=== PATIENT | male | born 1955 | race Caucasian/White ===

== ENCOUNTER 2017-11-24 12:23 | Inpatient (IN) | payer MEDICARE, SELFPAY ==
[~2017-11-24] VITALS: Ht 172.7 cm; Wt 59.9 kg
[~2017-11-24 12:23] MED LIST: BENZ2TAB10 PO; FLUD25I IM; FLUP10 PO; FLUP25VI5 IM; FLUP5 PO; LISI-662 PO; OMEP20 PO
[2017-11-24] MEDS ORDERED: ACETAMINOPHEN 325 MG TABLET PO PRN (12:30)
[2017-11-24] MEDS ORDERED: FluPHENAZine HCL 5 MG TABLET PO PRN (12:30)
[2017-11-24] MEDS ORDERED: HydrOXYzine PAMOATE 50 MG CAPSULE PO PRN (12:30)
[2017-11-24] MEDS ORDERED: ZOLPIDEM TARTRATE 10 MG TABLET PO PRN (12:30)
[2017-11-24] MEDS ORDERED: TUBERCULIN, PURIFIED PROTEIN DERIVATIVE 5 TU/0.1 ML SYG ID ONE (12:30)
[2017-11-24] MEDS ORDERED: MAGNESIUM HYDROXIDE SUSPENSION 30 ML UDCUP PO PRN (12:30)
[2017-11-24] MEDS ORDERED: LOPERAMIDE HCL 2 MG CAPSULE PO PRN (12:30)
[2017-11-24] MEDS ORDERED: GuaiFENesin/D-METHORPHAN [SUGAR-FREE] 200-20MG/10 ML SYRUP UDCUP PO PRN (12:30)
[2017-11-24 12:44] VITALS: BP 127/79
[2017-11-24] MEDS ORDERED: FLUP5 PO (13:46)
[2017-11-24] MEDS ORDERED: LISI-662 PO (13:46)
[2017-11-24] MEDS ORDERED: OMEP20 PO (13:46)
[2017-11-24] MEDS ORDERED: TRIH5TAB2 PO (13:46)
[2017-11-24] MEDS: TRIHEXYPHENIDYL HCL 5 MG TABLET PO SCH ×2 (13:57→17:00)
[2017-11-24] MEDS ORDERED: PNEUMOCOCCAL VACCINE POLYVALENT 0.5 ML VIAL [PPSV23] IM ONE (14:00)
[2017-11-24] MEDS ORDERED: INFLUENZA VIRUS VACCINE QVS 2017-18 (3YR+)/PF 60 MCG/0.5 ML SYRINGE IM ONE (14:00)
[2017-11-24] MEDS: THIAMINE HCL 100 MG TABLET PO SCH (17:01)
[2017-11-24 17:32] VITALS: BP 137/60
[2017-11-24] MEDS: FluPHENAZine HCL 5 MG TABLET PO SCH (20:05)
[2017-11-24] MEDS: MAG HYDROX/AL HYDROX/SIMETH ES 30 ML SUSPENSION UDCUP PO PRN (20:15)
[2017-11-25] MEDS: LORazepam 2 MG TABLET PO PRN ×2 (00:41→16:23)
[2017-11-25] MEDS: MAG HYDROX/AL HYDROX/SIMETH ES 30 ML SUSPENSION UDCUP PO PRN ×3 (00:42→20:09)
[2017-11-25 00:43] VITALS: BP 143/83
[2017-11-25 07:37] LABS: BASOPHILS % (AUTO) 0.2 % (0.0-2.0); EOSINOPHILS % (AUTO) 0.9 % (1.0-6.0); HEMATOCRIT 44.1 % (41-53); HEMOGLOBIN 14.7 g/dL (13.5-17.5); LYMPHOCYTES # (AUTO) 1.5 K/uL (1.0-4.8); LYMPHOCYTES % (AUTO) 13.9 % (22.0-44.0); MEAN CORPUSCULAR HEMOGLOBIN 29.9 pg (26.0-34.0); MEAN CORPUSCULAR HGB CONC 33.4 G/dL (31.0-37.0); MEAN CORPUSCULAR VOLUME 89 fL (80-100); MONOCYTES # (AUTO) 0.5 K/uL (0.1-1.0); MONOCYTES % (AUTO) 4.6 % (2.0-9.0); NEUTROPHILS # (AUTO) 8.6 K/uL (1.8-7.7); NEUTROPHILS % (AUTO) 80.4 % (40.0-70.0); PLATELET COUNT (AUTO) 218 K/uL (150-450); RED BLOOD CELL COUNT(AUTO) 4.92 MIL/uL (4.50-5.90); RED CELL DISTRIBUTION WIDTH 15.8 % (11.5-14.5)
[2017-11-25 07:43] LABS: HEMOGLOBIN A1C 5.9 % (4.5-6.2)
[2017-11-25 08:01] LABS: ALANINE AMINOTRANSFERASE 26 U/L (12-78); ALBUMIN 3.4 g/dL (3.4-5.0); ALKALINE PHOSPHATASE 64 U/L (46-116); ANION GAP 7 mmol/L (8-16); ASPARTATE AMINOTRANSFERASE 15 U/L (15-37); BILIRUBIN,TOTAL 0.3 mg/dL (0.1-1.0); CALCIUM, TOTAL 8.4 mg/dL (8.8-10.5); CARBON DIOXIDE 25 mmol/L (22-29); CHLORIDE 105 mmol/L (98-107); CHOL/HDL RATIO 2.7 (4.2-7.3); CHOLESTEROL 173 mg/dL (131-200); CREATININE 1.06 mg/dL (0.60-1.30); GLOMERULAR FILTR. RATE CALC > 60 mL/min (>60); GLUCOSE,RANDOM 96 mg/dL (70-110); HDL CHOLESTEROL 65 mg/dL (40-60); POTASSIUM 4.7 mmol/L (3.5-5.1); SODIUM SERUM 137 mmol/L (136-145); TOTAL PROTEIN, SERUM 6.5 g/dL (6.4-8.2); TRIGLYCERIDES 96 mg/dL (15-150); UREA NITROGEN, BLOOD 15 mg/dL (7-18)
[2017-11-25 08:02] LABS: FREE T4 (FREE THYROXINE) 0.99 ng/dL (0.76-1.46); LDL CHOL (CALC.) 89 mg/dL (0-130); THYROID STIMULATING HORMONE 1.66 uIU/mL (0.36-3.74)
[2017-11-25] MEDS: TRIHEXYPHENIDYL HCL 5 MG TABLET PO SCH ×3 (08:28→16:22)
[2017-11-25] MEDS: FOLIC ACID 1 MG TABLET PO SCH (08:29)
[2017-11-25] MEDS: THIAMINE HCL 100 MG TABLET PO SCH ×2 (08:29→16:22)
[2017-11-25] MEDS: NALTREXONE HCL 50 MG TABLET PO SCH (08:29)
[2017-11-25] MEDS: MULTIVITAMINS WITH MINERALS, THERAPEUTIC TABLET PO SCH (08:29)
[2017-11-25 08:37] VITALS: BP 144/73
[2017-11-25] MEDS: PROMETHAZINE HCL 25 MG TABLET PO PRN ×2 (16:05→22:29)
[2017-11-25 16:16] VITALS: BP 152/93
[2017-11-25 18:04] VITALS: BP 160/106
[2017-11-25] MEDS ORDERED: AmLODIPine BESYLATE 10 MG TABLET PO ONE (18:30)
[2017-11-25 19:30] VITALS: BP 149/88
[2017-11-25] MEDS: FluPHENAZine HCL 5 MG TABLET PO SCH (20:34)
[2017-11-26 00:23] VITALS: BP 112/73
[2017-11-26] MEDS: MAG HYDROX/AL HYDROX/SIMETH ES 30 ML SUSPENSION UDCUP PO PRN (02:40)
[2017-11-26 08:30] VITALS: BP 157/95
[2017-11-26] MEDS: FOLIC ACID 1 MG TABLET PO SCH (08:34)
[2017-11-26] MEDS: NALTREXONE HCL 50 MG TABLET PO SCH (08:34)
[2017-11-26] MEDS: THIAMINE HCL 100 MG TABLET PO SCH (08:34)
[2017-11-26] MEDS: TRIHEXYPHENIDYL HCL 5 MG TABLET PO SCH ×2 (08:34→13:00)
[2017-11-26] MEDS: MULTIVITAMINS WITH MINERALS, THERAPEUTIC TABLET PO SCH (08:34)
[2017-11-26] MEDS ORDERED: AmLODIPine BESYLATE 5 MG TABLET PO SCH (09:00)
[2017-11-26] MEDS ORDERED: PANTOPRAZOLE SODIUM 40 MG DR TABLET PO SCH (09:00)
[2017-11-26] MEDS ORDERED: AmLODIPine BESYLATE 10 MG TABLET PO SCH (09:00)
[2017-11-26 09:35] VITALS: BP 150/95
[2017-11-26 12:06] VITALS: BP 171/115
[2017-11-26] MEDS ORDERED: NALT50TA6 PO (13:23)
[2017-11-26] MEDS ORDERED: PANT40TA25 PO (13:23)
[2017-11-26] MEDS ORDERED: AMLO-512 PO (13:23)
[2017-11-26] MEDS ORDERED: TRIH5TAB2 PO (13:23)
== END 2017-11-26 21:10 | disposition short-term general hospital (02) | DRG 885 ==
LOC: EDSTATUS 12:27 → B2X 12:58
PROVIDERS: ADMIT Psychiatry & Neurology Psychiatry; ATTEND Psychiatry & Neurology Psychiatry
PROC: 3E0234Z Introduction of Serum, Toxoid and Vaccine into Muscle, Percutaneous Approach (ICD-10-PCS; principal; 2017-11-25)
DX: F25.0 Schizoaffective disorder, bipolar type (principal); J98.4 Other disorders of lung; K21.9 Gastro-esophageal reflux disease without esophagitis; F17.200 Nicotine dependence, unspecified, uncomplicated; I10 Essential (primary) hypertension; J44.9 Chronic obstructive pulmonary disease, unspecified; Z91.19 Patient's noncompliance with other medical treatment and regimen; Z88.8 Allergy status to other drugs, medicaments and biological substances; Z23 Encounter for immunization; Z79.899 Other long term (current) drug therapy
CPT/HCPCS: 83036; 84439; 84443; 86592; 90471

== ENCOUNTER 2017-11-26 12:43 | Inpatient (IN) | payer MEDICARE, SELFPAY ==
[~2017-11-26] VITALS: Ht 172.7 cm; Wt 55.8 kg
[~2017-11-26 12:43] MED LIST changes: +TRIH5TAB2 PO
[2017-11-26] MEDS ORDERED: TRIH5TAB2 PO (13:23)
[2017-11-26] MEDS ORDERED: PANT40TA25 PO (13:23)
[2017-11-26] MEDS ORDERED: AMLO-512 PO (13:23)
[2017-11-26] MEDS ORDERED: NALT50TA6 PO (13:23)
[2017-11-26] MEDS ORDERED: OMEPRAZOLE 20 MG CAPSULE PO ONE (14:00)
[2017-11-26] MEDS ORDERED: DONNATAL/LIDOCAINE/MAALOX 55 ML BOTTLE PO ONE (14:00)
[2017-11-26 14:06] LABS: BASOPHILS % (AUTO) 0.2 % (0.0-2.0); EOSINOPHILS % (AUTO) 0 % (1.0-6.0); HEMATOCRIT 45.8 % (41-53); HEMOGLOBIN 15.3 g/dL (13.5-17.5); LYMPHOCYTES % (AUTO) 4.2 % (22.0-44.0); MEAN CORPUSCULAR HEMOGLOBIN 29.8 pg (26.0-34.0); MEAN CORPUSCULAR HGB CONC 33.5 G/dL (31.0-37.0); MEAN CORPUSCULAR VOLUME 89 fL (80-100); MONOCYTES % (AUTO) 4.4 % (2.0-9.0); NEUTROPHILS # (AUTO) 21.5 K/uL (1.8-7.7); PLATELET COUNT (AUTO) 240 K/uL (150-450); RED BLOOD CELL COUNT(AUTO) 5.15 MIL/uL (4.50-5.90); RED CELL DISTRIBUTION WIDTH 15.4 % (11.5-14.5)
[2017-11-26 14:11] LABS: NEUTROPHILS % (AUTO) 91.2 % (40.0-70.0)
[2017-11-26 14:15] LABS: ANION GAP 9 mmol/L (8-16); CALCIUM, TOTAL 8.8 mg/dL (8.8-10.5); CARBON DIOXIDE 25 mmol/L (22-29); CHLORIDE 97 mmol/L (98-107); CREATININE 0.97 mg/dL (0.60-1.30); GLOMERULAR FILTR. RATE CALC > 60 mL/min (>60); GLUCOSE,RANDOM 148 mg/dL (70-110); POTASSIUM 4.6 mmol/L (3.5-5.1); SODIUM SERUM 131 mmol/L (136-145); UREA NITROGEN, BLOOD 23 mg/dL (7-18)
[2017-11-26 14:22] LABS: ALANINE AMINOTRANSFERASE 21 U/L (12-78); ALBUMIN 3.5 g/dL (3.4-5.0); ALKALINE PHOSPHATASE 62 U/L (46-116); ASPARTATE AMINOTRANSFERASE 14 U/L (15-37); BILIRUBIN,TOTAL 0.4 mg/dL (0.1-1.0); LIPASE 196 U/L (73-393); TOTAL PROTEIN, SERUM 7.2 g/dL (6.4-8.2)
[2017-11-26] MEDS ORDERED: IOVERSOL 320 MG/ML 100 ML VIAL ONE (15:18)
[2017-11-26] MEDS ORDERED: ACETAMINOPHEN 325 MG TABLET PO PRN ×2 (17:00→20:00)
[2017-11-26] MEDS ORDERED: MetroNIDAZOLE 500 MG/NACL 100 ML IV ONE (17:00)
[2017-11-26] MEDS ORDERED: CIPROFLOXACIN 400 MG/D5% WATER 200 ML IV ONE (17:00)
[2017-11-26] MEDS ORDERED: ONDANSETRON HCL 4 MG/2 ML VIAL IVP PRN ×2 (17:00→20:00)
[2017-11-26] MEDS ORDERED: 0.9% SODIUM CHLORIDE 10 ML SYRINGE IVP PRN (17:00)
[2017-11-26] MEDS ORDERED: FAMOTIDINE 10 MG/ML 2 ML VIAL IVP ONE (17:15)
[2017-11-26 17:55] VITALS: BP 151/98
[2017-11-26 19:42] VITALS: BP 150/91
[2017-11-26] MEDS ORDERED: MAGNESIUM HYDROXIDE SUSPENSION 30 ML UDCUP PO PRN (20:00)
[2017-11-26] MEDS ORDERED: BISACODYL 10 MG RECTAL RECTAL SUPPOSITORY PR PRN (20:00)
[2017-11-26] MEDS ORDERED: ZOLPIDEM TARTRATE 5 MG TABLET PO PRN (20:00)
[2017-11-26] MEDS ORDERED: SODIUM CHLORIDE 0.9% 1,000 ML IV ONE (20:00)
[2017-11-26] MEDS: DOCUSATE SODIUM 100 MG CAPSULE PO SCH (20:22)
[2017-11-26] MEDS: PANTOPRAZOLE SODIUM 80 MG in SODIUM CHLORIDE 0.9% 100 ML IV SCH (20:41)
[2017-11-26] MEDS ORDERED: CIPROFLOXACIN 400 MG/D5% WATER 200 ML IV SCH (21:00)
[2017-11-26 23:23] VITALS: BP 149/87
[2017-11-26] MEDS: HEPARIN SODIUM,PORCINE 5,000 UNITS/ML VIAL SQ SCH (23:47)
[2017-11-27 04:31] VITALS: BP 132/81
[2017-11-27] MEDS: MetroNIDAZOLE 500 MG/NACL 100 ML IV SCH ×2 (04:51→11:31)
[2017-11-27] MEDS: PANTOPRAZOLE SODIUM 80 MG in SODIUM CHLORIDE 0.9% 100 ML IV SCH (05:30)
[2017-11-27 06:19] LABS: BASOPHILS % (AUTO) 0.1 % (0.0-2.0); EOSINOPHILS % (AUTO) 0.1 % (1.0-6.0); HEMATOCRIT 41.4 % (41-53); HEMOGLOBIN 14.1 g/dL (13.5-17.5); LYMPHOCYTES # (AUTO) 1.2 K/uL (1.0-4.8); MEAN CORPUSCULAR HEMOGLOBIN 30.3 pg (26.0-34.0); MEAN CORPUSCULAR HGB CONC 34.1 G/dL (31.0-37.0); MEAN CORPUSCULAR VOLUME 89 fL (80-100); MONOCYTES % (AUTO) 5.1 % (2.0-9.0); PLATELET COUNT (AUTO) 189 K/uL (150-450); RED BLOOD CELL COUNT(AUTO) 4.65 MIL/uL (4.50-5.90); RED CELL DISTRIBUTION WIDTH 15.2 % (11.5-14.5)
[2017-11-27 06:46] LABS: NEUTROPHILS % (AUTO) 88.7 % (40.0-70.0)
[2017-11-27 06:52] LABS: ANION GAP 10 mmol/L (8-16); CALCIUM, TOTAL 8.4 mg/dL (8.8-10.5); CARBON DIOXIDE 20 mmol/L (22-29); CHLORIDE 102 mmol/L (98-107); CREATININE 0.93 mg/dL (0.60-1.30); GLOMERULAR FILTR. RATE CALC > 60 mL/min (>60); GLUCOSE,RANDOM 104 mg/dL (70-110); POTASSIUM 4.3 mmol/L (3.5-5.1); SODIUM SERUM 132 mmol/L (136-145); THYROID STIMULATING HORMONE 1.04 uIU/mL (0.36-3.74); UREA NITROGEN, BLOOD 17 mg/dL (7-18)
[2017-11-27 07:04] VITALS: BP 121/75
[2017-11-27] MEDS: HEPARIN SODIUM,PORCINE 5,000 UNITS/ML VIAL SQ SCH (08:18)
[2017-11-27] MEDS: DOCUSATE SODIUM 100 MG CAPSULE PO SCH (08:19)
[2017-11-27] MEDS ORDERED: PANTOPRAZOLE SODIUM 40 MG DR TABLET PO SCH (09:00)
[2017-11-27 11:43] VITALS: BP 141/85
[2017-11-27] MEDS ORDERED: SODIUM CHLORIDE 0.9% 500 ML IV ONE (12:00)
[2017-11-27] MEDS ORDERED: AmLODIPine BESYLATE 10 MG TABLET PO SCH (14:30)
[2017-11-27] MEDS ORDERED: TRIHEXYPHENIDYL HCL 5 MG TABLET PO SCH (16:00)
[2017-11-27] MEDS ORDERED: FluPHENAZine HCL 5 MG TABLET PO SCH (21:00)
== END 2017-11-27 14:55 | disposition left against medical advice (07) | DRG 872 ==
LOC: EMS 12:46 → 5N 16:55
PROVIDERS: ADMIT Internal Medicine; ATTEND Internal Medicine
DX: A41.9 Sepsis, unspecified organism (principal); F20.9 Schizophrenia, unspecified; F32.9 Major depressive disorder, single episode, unspecified; I10 Essential (primary) hypertension; K29.70 Gastritis, unspecified, without bleeding; K21.9 Gastro-esophageal reflux disease without esophagitis; Z82.49 Family history of ischemic heart disease and other diseases of the circulatory system; Z79.899 Other long term (current) drug therapy; Z81.8 Family history of other mental and behavioral disorders; Z80.9 Family history of malignant neoplasm, unspecified; Z87.891 Personal history of nicotine dependence
CPT/HCPCS: 74177; 84443; 93005; 96365; 96375; 99285; C9113; J0744; J1644; J3490; J7030; J7040; J7050

== ENCOUNTER 2018-03-26 11:06 | Inpatient (IN) | payer MEDICARE ==
[~2018-03-26] VITALS: Ht 172.7 cm; Wt 58.5 kg
[~2018-03-26 11:06] MED LIST changes: +AMLO-512 PO; -BENZ2TAB10 PO; -FLUD25I IM; -FLUP10 PO; -FLUP25VI5 IM; +NALT50TA6 PO; -OMEP20 PO; +PANT40TA25 PO
[2018-03-26] MEDS ORDERED: FluPHENAZine HCL 5 MG TABLET PO PRN (13:45)
[2018-03-26] MEDS ORDERED: LOPERAMIDE HCL 2 MG CAPSULE PO PRN (13:45)
[2018-03-26] MEDS ORDERED: ACETAMINOPHEN 325 MG TABLET PO PRN (13:45)
[2018-03-26] MEDS ORDERED: FluPHENAZine DECANOATE 25 MG/ML IM ONE (13:45)
[2018-03-26] MEDS ORDERED: ZOLPIDEM TARTRATE 10 MG TABLET PO PRN (13:45)
[2018-03-26] MEDS ORDERED: GuaiFENesin/D-METHORPHAN [SUGAR-FREE] 200-20MG/10 ML SYRUP UDCUP PO PRN (13:45)
[2018-03-26] MEDS ORDERED: PROMETHAZINE HCL 25 MG TABLET PO PRN (13:45)
[2018-03-26] MEDS ORDERED: MAGNESIUM HYDROXIDE SUSPENSION 30 ML UDCUP PO PRN (13:45)
[2018-03-26] MEDS ORDERED: LORazepam 2 MG TABLET PO PRN (13:45)
[2018-03-26] MEDS ORDERED: HydrOXYzine PAMOATE 50 MG CAPSULE PO PRN (13:45)
[2018-03-26 14:02] VITALS: BP 129/94
[2018-03-26] MEDS ORDERED: PNEUMOCOCCAL VACCINE POLYVALENT 0.5 ML VIAL [PPSV23] IM ONE (15:00)
[2018-03-26 15:30] VITALS: BP 150/90
[2018-03-26 16:00] VITALS: BP 150/90
[2018-03-26] MEDS: MAG HYDROX/AL HYDROX/SIMETH ES 30 ML SUSPENSION UDCUP PO PRN ×2 (16:12→22:34)
[2018-03-26] MEDS: THIAMINE HCL 100 MG TABLET PO SCH (18:05)
[2018-03-26] MEDS: TRIHEXYPHENIDYL HCL 5 MG TABLET PO SCH (18:05)
[2018-03-26] MEDS: LISINOPRIL 20 MG TABLET PO SCH (18:05)
[2018-03-26 19:00] VITALS: BP 137/88
[2018-03-26] MEDS: FluPHENAZine HCL 5 MG TABLET PO SCH (20:56)
[2018-03-27 06:50] VITALS: BP 133/82
[2018-03-27 08:10] LABS: BASOPHILS % (AUTO) 0.3 % (0.0-2.0); EOSINOPHILS % (AUTO) 1.7 % (1.0-6.0); HEMATOCRIT 43.7 % (41-53); LYMPHOCYTES # (AUTO) 2.4 K/uL (1.0-4.8); LYMPHOCYTES % (AUTO) 24.4 % (22.0-44.0); MEAN CORPUSCULAR HEMOGLOBIN 30.7 pg (26.0-34.0); MEAN CORPUSCULAR HGB CONC 34.4 G/dL (31.0-37.0); MEAN CORPUSCULAR VOLUME 89 fL (80-100); MONOCYTES # (AUTO) 0.8 K/uL (0.1-1.0); MONOCYTES % (AUTO) 7.6 % (2.0-9.0); NEUTROPHILS # (AUTO) 6.5 K/uL (1.8-7.7); PLATELET COUNT (AUTO) 205 K/uL (150-450); RED CELL DISTRIBUTION WIDTH 15.9 % (11.5-14.5)
[2018-03-27 08:22] LABS: HEMOGLOBIN A1C 5.5 % (4.5-6.2)
[2018-03-27 08:40] VITALS: BP 138/76
[2018-03-27 08:50] LABS: ALANINE AMINOTRANSFERASE 20 U/L (12-78); ALBUMIN 3.7 g/dL (3.4-5.0); ALKALINE PHOSPHATASE 72 U/L (46-116); ANION GAP 11 mmol/L (8-16); ASPARTATE AMINOTRANSFERASE 17 U/L (15-37); BILIRUBIN,TOTAL 0.3 mg/dL (0.1-1.0); CALCIUM, TOTAL 8.9 mg/dL (8.8-10.5); CARBON DIOXIDE 23 mmol/L (22-29); CHLORIDE 101 mmol/L (98-107); CHOL/HDL RATIO 2.3 (4.2-7.3); CHOLESTEROL 161 mg/dL (131-200); CREATININE 0.96 mg/dL (0.60-1.30); FREE T4 (FREE THYROXINE) 1.11 ng/dL (0.76-1.46); GLOMERULAR FILTR. RATE CALC > 60 mL/min (>60); GLUCOSE,RANDOM 84 mg/dL (70-110); HDL CHOLESTEROL 71 mg/dL (40-60); LDL CHOL (CALC.) 78 mg/dL (0-130); POTASSIUM 4.3 mmol/L (3.5-5.1); SODIUM SERUM 135 mmol/L (136-145); THYROID STIMULATING HORMONE 2.69 uIU/mL (0.36-3.74); TOTAL PROTEIN, SERUM 7.2 g/dL (6.4-8.2); TRIGLYCERIDES 61 mg/dL (15-150); UREA NITROGEN, BLOOD 21 mg/dL (7-18)
[2018-03-27] MEDS: THIAMINE HCL 100 MG TABLET PO SCH ×2 (08:52→16:38)
[2018-03-27] MEDS: LISINOPRIL 20 MG TABLET PO SCH (08:52)
[2018-03-27] MEDS: MULTIVITAMINS WITH MINERALS, THERAPEUTIC TABLET PO SCH (08:52)
[2018-03-27] MEDS: NALTREXONE HCL 50 MG TABLET PO SCH (08:52)
[2018-03-27] MEDS: TRIHEXYPHENIDYL HCL 5 MG TABLET PO SCH ×3 (08:52→16:38)
[2018-03-27] MEDS: PANTOPRAZOLE SODIUM 40 MG DR TABLET PO SCH (08:52)
[2018-03-27] MEDS: FOLIC ACID 1 MG TABLET PO SCH (08:52)
[2018-03-27] MEDS: MAG HYDROX/AL HYDROX/SIMETH ES 30 ML SUSPENSION UDCUP PO PRN ×2 (10:44→16:58)
[2018-03-27] MEDS: CHOLECALCIFEROL (VIT D3) 5,000 UNITS CAPSULE PO SCH (12:13)
[2018-03-27 16:13] VITALS: BP 139/86
[2018-03-27] MEDS: FluPHENAZine HCL 5 MG TABLET PO SCH (20:47)
[2018-03-28 07:00] VITALS: BP 134/83
[2018-03-28 08:45] VITALS: BP 109/71
[2018-03-28 08:55] VITALS: BP 118/74
[2018-03-28] MEDS: PANTOPRAZOLE SODIUM 40 MG DR TABLET PO SCH (08:58)
[2018-03-28] MEDS: LISINOPRIL 20 MG TABLET PO SCH (08:58)
[2018-03-28] MEDS: THIAMINE HCL 100 MG TABLET PO SCH ×2 (08:58→16:40)
[2018-03-28] MEDS: MULTIVITAMINS WITH MINERALS, THERAPEUTIC TABLET PO SCH (08:58)
[2018-03-28] MEDS: NALTREXONE HCL 50 MG TABLET PO SCH (08:59)
[2018-03-28] MEDS: FOLIC ACID 1 MG TABLET PO SCH (08:59)
[2018-03-28] MEDS: CHOLECALCIFEROL (VIT D3) 5,000 UNITS CAPSULE PO SCH (08:59)
[2018-03-28] MEDS: TRIHEXYPHENIDYL HCL 5 MG TABLET PO SCH ×3 (08:59→16:39)
[2018-03-28] MEDS: MAG HYDROX/AL HYDROX/SIMETH ES 30 ML SUSPENSION UDCUP PO PRN ×2 (12:31→22:28)
[2018-03-28 16:12] VITALS: BP 110/62
[2018-03-28] MEDS: FluPHENAZine HCL 5 MG TABLET PO SCH (20:39)
[2018-03-29 01:54] VITALS: BP 104/65
[2018-03-29 08:47] VITALS: BP 105/60
[2018-03-29] MEDS: TRIHEXYPHENIDYL HCL 5 MG TABLET PO SCH ×3 (08:57→16:37)
[2018-03-29] MEDS: CHOLECALCIFEROL (VIT D3) 5,000 UNITS CAPSULE PO SCH (08:57)
[2018-03-29] MEDS: FOLIC ACID 1 MG TABLET PO SCH (08:57)
[2018-03-29] MEDS: NALTREXONE HCL 50 MG TABLET PO SCH (08:57)
[2018-03-29] MEDS: PANTOPRAZOLE SODIUM 40 MG DR TABLET PO SCH (08:57)
[2018-03-29] MEDS: THIAMINE HCL 100 MG TABLET PO SCH ×2 (08:57→16:37)
[2018-03-29] MEDS: MULTIVITAMINS WITH MINERALS, THERAPEUTIC TABLET PO SCH (08:58)
[2018-03-29] MEDS: LISINOPRIL 20 MG TABLET PO SCH (09:00)
[2018-03-29 17:49] VITALS: BP 113/73
[2018-03-29] MEDS: FluPHENAZine HCL 5 MG TABLET PO SCH (20:46)
[2018-03-30 07:04] VITALS: BP 121/78
[2018-03-30 08:35] VITALS: BP 112/65
[2018-03-30] MEDS: LISINOPRIL 20 MG TABLET PO SCH (08:39)
[2018-03-30] MEDS: FOLIC ACID 1 MG TABLET PO SCH (08:39)
[2018-03-30] MEDS: MULTIVITAMINS WITH MINERALS, THERAPEUTIC TABLET PO SCH (08:39)
[2018-03-30] MEDS: PANTOPRAZOLE SODIUM 40 MG DR TABLET PO SCH (08:39)
[2018-03-30] MEDS: THIAMINE HCL 100 MG TABLET PO SCH ×2 (08:40→16:27)
[2018-03-30] MEDS: CHOLECALCIFEROL (VIT D3) 5,000 UNITS CAPSULE PO SCH (08:40)
[2018-03-30] MEDS: TRIHEXYPHENIDYL HCL 5 MG TABLET PO SCH ×3 (08:40→16:27)
[2018-03-30] MEDS: NALTREXONE HCL 50 MG TABLET PO SCH (08:40)
[2018-03-30 16:32] VITALS: BP 110/69
[2018-03-30] MEDS: FluPHENAZine HCL 5 MG TABLET PO SCH (20:21)
[2018-03-31 07:27] VITALS: BP 104/61
[2018-03-31] MEDS: NALTREXONE HCL 50 MG TABLET PO SCH (08:38)
[2018-03-31] MEDS: TRIHEXYPHENIDYL HCL 5 MG TABLET PO SCH ×3 (08:38→16:56)
[2018-03-31] MEDS: FOLIC ACID 1 MG TABLET PO SCH (08:38)
[2018-03-31] MEDS: PANTOPRAZOLE SODIUM 40 MG DR TABLET PO SCH (08:38)
[2018-03-31] MEDS: THIAMINE HCL 100 MG TABLET PO SCH ×2 (08:38→16:56)
[2018-03-31] MEDS: CHOLECALCIFEROL (VIT D3) 5,000 UNITS CAPSULE PO SCH (08:38)
[2018-03-31] MEDS: MULTIVITAMINS WITH MINERALS, THERAPEUTIC TABLET PO SCH (08:38)
[2018-03-31] MEDS: LISINOPRIL 20 MG TABLET PO SCH (08:40)
[2018-03-31 08:45] VITALS: BP 100/62
[2018-03-31 16:42] VITALS: BP 103/60
[2018-03-31] MEDS: FluPHENAZine HCL 5 MG TABLET PO SCH (20:29)
[2018-04-01 00:48] VITALS: BP 100/61
[2018-04-01 08:35] VITALS: BP 104/60
[2018-04-01] MEDS: MULTIVITAMINS WITH MINERALS, THERAPEUTIC TABLET PO SCH (08:46)
[2018-04-01] MEDS: THIAMINE HCL 100 MG TABLET PO SCH ×2 (08:46→16:43)
[2018-04-01] MEDS: PANTOPRAZOLE SODIUM 40 MG DR TABLET PO SCH (08:46)
[2018-04-01] MEDS: TRIHEXYPHENIDYL HCL 5 MG TABLET PO SCH ×3 (08:46→16:43)
[2018-04-01] MEDS: NALTREXONE HCL 50 MG TABLET PO SCH (08:46)
[2018-04-01] MEDS: FOLIC ACID 1 MG TABLET PO SCH (08:46)
[2018-04-01] MEDS: CHOLECALCIFEROL (VIT D3) 5,000 UNITS CAPSULE PO SCH (08:46)
[2018-04-01] MEDS: LISINOPRIL 20 MG TABLET PO SCH (08:47)
[2018-04-01 16:29] VITALS: BP 110/67
[2018-04-01] MEDS: FluPHENAZine HCL 5 MG TABLET PO SCH (20:41)
[2018-04-02 06:50] VITALS: BP 122/68
[2018-04-02] MEDS: TRIHEXYPHENIDYL HCL 5 MG TABLET PO SCH ×3 (08:34→16:38)
[2018-04-02] MEDS: CHOLECALCIFEROL (VIT D3) 5,000 UNITS CAPSULE PO SCH (08:34)
[2018-04-02] MEDS: PANTOPRAZOLE SODIUM 40 MG DR TABLET PO SCH (08:34)
[2018-04-02] MEDS: NALTREXONE HCL 50 MG TABLET PO SCH (08:34)
[2018-04-02 08:35] VITALS: BP 106/57
[2018-04-02] MEDS: MULTIVITAMINS WITH MINERALS, THERAPEUTIC TABLET PO SCH (08:35)
[2018-04-02] MEDS: FOLIC ACID 1 MG TABLET PO SCH (08:35)
[2018-04-02] MEDS: THIAMINE HCL 100 MG TABLET PO SCH ×2 (08:35→16:38)
[2018-04-02] MEDS: LISINOPRIL 20 MG TABLET PO SCH (08:44)
[2018-04-02 16:21] VITALS: BP 127/66
[2018-04-02] MEDS: FluPHENAZine HCL 5 MG TABLET PO SCH (20:49)
[2018-04-03 06:33] VITALS: BP 101/64
[2018-04-03 08:00] VITALS: BP 103/61
[2018-04-03] MEDS: CHOLECALCIFEROL (VIT D3) 5,000 UNITS CAPSULE PO SCH (08:31)
[2018-04-03] MEDS: LISINOPRIL 20 MG TABLET PO SCH (08:31)
[2018-04-03] MEDS: MULTIVITAMINS WITH MINERALS, THERAPEUTIC TABLET PO SCH (08:31)
[2018-04-03] MEDS: THIAMINE HCL 100 MG TABLET PO SCH ×2 (08:31→16:28)
[2018-04-03] MEDS: PANTOPRAZOLE SODIUM 40 MG DR TABLET PO SCH (08:31)
[2018-04-03] MEDS: TRIHEXYPHENIDYL HCL 5 MG TABLET PO SCH ×3 (08:31→16:28)
[2018-04-03] MEDS: FOLIC ACID 1 MG TABLET PO SCH (08:31)
[2018-04-03] MEDS: NALTREXONE HCL 50 MG TABLET PO SCH (08:31)
[2018-04-03 16:17] VITALS: BP 138/72
[2018-04-03] MEDS ORDERED: FluPHENAZine HCL 10 MG TABLET PO SCH (21:00)
[2018-04-04 06:32] VITALS: BP 121/66
[2018-04-04 08:15] VITALS: BP 105/60
[2018-04-04] MEDS: CHOLECALCIFEROL (VIT D3) 5,000 UNITS CAPSULE PO SCH (08:52)
[2018-04-04] MEDS: PANTOPRAZOLE SODIUM 40 MG DR TABLET PO SCH (08:53)
[2018-04-04] MEDS: FOLIC ACID 1 MG TABLET PO SCH (08:53)
[2018-04-04] MEDS: NALTREXONE HCL 50 MG TABLET PO SCH (08:53)
[2018-04-04] MEDS: MULTIVITAMINS WITH MINERALS, THERAPEUTIC TABLET PO SCH (08:53)
[2018-04-04] MEDS: TRIHEXYPHENIDYL HCL 5 MG TABLET PO SCH ×3 (08:53→16:50)
[2018-04-04] MEDS: THIAMINE HCL 100 MG TABLET PO SCH ×2 (08:53→16:50)
[2018-04-04] MEDS ORDERED: FluPHENAZine DECANOATE 25 MG/ML IM ONE (13:30)
[2018-04-04] MEDS ORDERED: FLUD25I IM (13:52)
[2018-04-04] MEDS ORDERED: TRIH5TAB2 PO (13:52)
[2018-04-04] MEDS ORDERED: NALT50TA PO (13:52)
[2018-04-04 16:25] VITALS: BP 122/64
[2018-04-05 07:13] VITALS: BP 106/66
[2018-04-05 08:00] VITALS: BP 115/65
[2018-04-05] MEDS: PANTOPRAZOLE SODIUM 40 MG DR TABLET PO SCH (09:01)
[2018-04-05] MEDS: THIAMINE HCL 100 MG TABLET PO SCH (09:01)
[2018-04-05] MEDS: FOLIC ACID 1 MG TABLET PO SCH (09:01)
[2018-04-05] MEDS: TRIHEXYPHENIDYL HCL 5 MG TABLET PO SCH ×2 (09:01→12:19)
[2018-04-05] MEDS: NALTREXONE HCL 50 MG TABLET PO SCH (09:01)
[2018-04-05] MEDS: MULTIVITAMINS WITH MINERALS, THERAPEUTIC TABLET PO SCH (09:01)
[2018-04-05] MEDS: CHOLECALCIFEROL (VIT D3) 5,000 UNITS CAPSULE PO SCH (09:01)
[2018-04-05] MEDS ORDERED: CHOL50004 PO (09:33)
[2018-04-05] MEDS ORDERED: FLUD25I SQ (09:33)
[2018-04-05] MEDS ORDERED: NALT50TA6 PO (10:52)
[2018-04-05] MEDS ORDERED: FLUD25I IM (10:52)
[2018-04-05] MEDS ORDERED: TRIH5TAB2 PO (10:52)
[2018-04-09] MEDS ORDERED: FluPHENAZine DECANOATE 25 MG/ML IM SCH (09:00)
[2018-04-18] MEDS ORDERED: FluPHENAZine DECANOATE 25 MG/ML IM SCH (09:00)
== END 2018-04-05 21:52 | disposition home or self-care (01) | DRG 885 ==
LOC: B2X 14:30
PROVIDERS: ADMIT Psychiatry & Neurology Psychiatry; ATTEND Psychiatry & Neurology Psychiatry
DX: F20.0 Paranoid schizophrenia (principal); R45.850 Homicidal ideations; R45.851 Suicidal ideations; F17.210 Nicotine dependence, cigarettes, uncomplicated; F32.9 Major depressive disorder, single episode, unspecified; K21.9 Gastro-esophageal reflux disease without esophagitis; I10 Essential (primary) hypertension; Z59.9 Problem related to housing and economic circumstances, unspecified; Z65.3 Problems related to other legal circumstances; Z79.899 Other long term (current) drug therapy; Z91.14 Patient's other noncompliance with medication regimen; Z91.19 Patient's noncompliance with other medical treatment and regimen; Z28.21 Immunization not carried out because of patient refusal
CPT/HCPCS: 82306; 83036; 84439; 84443; 86592; 93005; J2680

== ENCOUNTER 2018-08-08 17:28 | Inpatient (IN) | payer MEDICARE, MEDICAID ==
[~2018-08-08] VITALS: Ht 172.7 cm; Wt 62.8 kg
[~2018-08-08 17:28] MED LIST changes: -AMLO-512 PO; +CHOL50004 PO; +FLUD25I IM; -FLUP5 PO; -LISI-662 PO; +NALT50TA PO
[2018-08-08] MEDS ORDERED: ZOLPIDEM TARTRATE 10 MG TABLET PO PRN (18:15)
[2018-08-08] MEDS ORDERED: FluPHENAZine HCL 5 MG TABLET PO PRN (18:15)
[2018-08-08] MEDS ORDERED: LORazepam 2 MG TABLET PO PRN (18:15)
[2018-08-08 18:52] VITALS: BP 142/92
[2018-08-08] MEDS ORDERED: PNEUMOCOCCAL VACCINE POLYVALENT 0.5 ML VIAL [PPSV23] IM ONE (19:00)
[2018-08-08 20:20] VITALS: BP 130/84
[2018-08-08] MEDS: FluPHENAZine HCL 10 MG TABLET PO SCH (21:25)
[2018-08-08] MEDS: TRIHEXYPHENIDYL HCL 5 MG TABLET PO SCH (21:26)
[2018-08-09 06:29] LABS: BASOPHILS % (AUTO) 0.1 % (0.0-2.0); EOSINOPHILS % (AUTO) 2.4 % (1.0-6.0); HEMATOCRIT 38.5 % (41-53); HEMOGLOBIN 12.8 g/dL (13.5-17.5); LYMPHOCYTES # (AUTO) 1.8 K/uL (1.0-4.8); LYMPHOCYTES % (AUTO) 22.7 % (22.0-44.0); MEAN CORPUSCULAR HEMOGLOBIN 29.1 pg (26.0-34.0); MEAN CORPUSCULAR HGB CONC 33.3 G/dL (31.0-37.0); MEAN CORPUSCULAR VOLUME 87 fL (80-100); MONOCYTES # (AUTO) 0.7 K/uL (0.1-1.0); MONOCYTES % (AUTO) 8.4 % (2.0-9.0); NEUTROPHILS # (AUTO) 5.3 K/uL (1.8-7.7); NEUTROPHILS % (AUTO) 66.4 % (40.0-70.0); PLATELET COUNT (AUTO) 197 K/uL (150-450); RED CELL DISTRIBUTION WIDTH 14.9 % (11.5-14.5)
[2018-08-09 07:11] LABS: ALBUMIN 2.6 g/dL (3.4-5.0); BILIRUBIN,TOTAL 0.4 mg/dL (0.1-1.0); CHOL/HDL RATIO 2.6 (4.2-7.3); CREATININE 1.21 mg/dL (0.60-1.30); FREE T4 (FREE THYROXINE) 1.11 ng/dL (0.76-1.46); POTASSIUM 4.4 mmol/L (3.5-5.1); THYROID STIMULATING HORMONE 1.76 uIU/mL (0.36-3.74); TOTAL PROTEIN, SERUM 5.2 g/dL (6.4-8.2)
[2018-08-09] MEDS: PANTOPRAZOLE SODIUM 40 MG DR TABLET PO SCH (09:13)
[2018-08-09] MEDS: CHOLECALCIFEROL (VIT D3) 5,000 UNITS CAPSULE PO SCH (09:13)
[2018-08-09] MEDS: TRIHEXYPHENIDYL HCL 5 MG TABLET PO SCH ×3 (09:13→18:39)
[2018-08-09] MEDS: NALTREXONE HCL 50 MG TABLET PO SCH (09:13)
[2018-08-09] MEDS ORDERED: LOPERAMIDE HCL 2 MG CAPSULE PO PRN (10:45)
[2018-08-09] MEDS ORDERED: ACETAMINOPHEN 325 MG TABLET PO PRN (10:45)
[2018-08-09] MEDS ORDERED: PROMETHAZINE HCL 25 MG TABLET PO PRN (10:45)
[2018-08-09] MEDS ORDERED: HydrOXYzine PAMOATE 50 MG CAPSULE PO PRN (10:45)
[2018-08-09] MEDS ORDERED: MAG HYDROX/AL HYDROX/SIMETH ES 30 ML SUSPENSION UDCUP PO PRN (10:45)
[2018-08-09] MEDS ORDERED: MAGNESIUM HYDROXIDE SUSPENSION 30 ML UDCUP PO PRN (10:45)
[2018-08-09] MEDS ORDERED: FluPHENAZine DECANOATE 25 MG/ML IM ONE (10:45)
[2018-08-09] MEDS ORDERED: GuaiFENesin/D-METHORPHAN [SUGAR-FREE] 200-20MG/10 ML SYRUP UDCUP PO PRN (10:45)
[2018-08-09 13:59] VITALS: BP 134/82
[2018-08-09] MEDS: THIAMINE HCL 100 MG TABLET PO SCH (16:01)
[2018-08-09 16:48] VITALS: BP 138/80
[2018-08-09] MEDS: FluPHENAZine HCL 10 MG TABLET PO SCH (22:50)
[2018-08-10] MEDS: MULTIVITAMINS WITH MINERALS, THERAPEUTIC TABLET PO SCH (07:47)
[2018-08-10] MEDS: THIAMINE HCL 100 MG TABLET PO SCH ×2 (07:50→17:11)
[2018-08-10] MEDS: TRIHEXYPHENIDYL HCL 5 MG TABLET PO SCH ×3 (07:50→17:11)
[2018-08-10] MEDS: CHOLECALCIFEROL (VIT D3) 5,000 UNITS CAPSULE PO SCH (07:50)
[2018-08-10] MEDS: NALTREXONE HCL 50 MG TABLET PO SCH (07:50)
[2018-08-10] MEDS: FOLIC ACID 1 MG TABLET PO SCH (07:50)
[2018-08-10] MEDS: PANTOPRAZOLE SODIUM 40 MG DR TABLET PO SCH (07:51)
[2018-08-10 08:05] VITALS: BP 142/82
[2018-08-10] MEDS: NICOTINE 21 MG/24 HOUR PATCH TD SCH (11:56)
[2018-08-10 16:36] VITALS: BP 140/70
[2018-08-10] MEDS: FluPHENAZine HCL 10 MG TABLET PO SCH (20:02)
[2018-08-11] MEDS: PANTOPRAZOLE SODIUM 40 MG DR TABLET PO SCH (07:57)
[2018-08-11] MEDS: MULTIVITAMINS WITH MINERALS, THERAPEUTIC TABLET PO SCH (07:57)
[2018-08-11] MEDS: NICOTINE 21 MG/24 HOUR PATCH TD SCH (07:58)
[2018-08-11] MEDS: NALTREXONE HCL 50 MG TABLET PO SCH (07:58)
[2018-08-11] MEDS: CHOLECALCIFEROL (VIT D3) 5,000 UNITS CAPSULE PO SCH (07:58)
[2018-08-11] MEDS: THIAMINE HCL 100 MG TABLET PO SCH ×2 (07:58→16:40)
[2018-08-11] MEDS: FOLIC ACID 1 MG TABLET PO SCH (07:58)
[2018-08-11] MEDS: TRIHEXYPHENIDYL HCL 5 MG TABLET PO SCH ×3 (07:58→16:40)
[2018-08-11 08:01] VITALS: BP 102/52
[2018-08-11 17:37] VITALS: BP 110/74
[2018-08-11] MEDS: FluPHENAZine HCL 10 MG TABLET PO SCH (20:23)
[2018-08-12] MEDS: FOLIC ACID 1 MG TABLET PO SCH (08:11)
[2018-08-12] MEDS: PANTOPRAZOLE SODIUM 40 MG DR TABLET PO SCH (08:11)
[2018-08-12] MEDS: NALTREXONE HCL 50 MG TABLET PO SCH (08:11)
[2018-08-12] MEDS: MULTIVITAMINS WITH MINERALS, THERAPEUTIC TABLET PO SCH (08:11)
[2018-08-12] MEDS: TRIHEXYPHENIDYL HCL 5 MG TABLET PO SCH ×3 (08:11→16:20)
[2018-08-12] MEDS: CHOLECALCIFEROL (VIT D3) 5,000 UNITS CAPSULE PO SCH (08:12)
[2018-08-12] MEDS: THIAMINE HCL 100 MG TABLET PO SCH ×2 (08:12→16:20)
[2018-08-12 08:15] VITALS: BP 101/63
[2018-08-12] MEDS: NICOTINE 21 MG/24 HOUR PATCH TD SCH (08:16)
[2018-08-12 17:00] VITALS: BP 98/71
[2018-08-12] MEDS: FluPHENAZine HCL 10 MG TABLET PO SCH (21:38)
[2018-08-13 04:30] VITALS: BP 115/77
[2018-08-13 08:30] VITALS: BP 116/69
[2018-08-13] MEDS: NALTREXONE HCL 50 MG TABLET PO SCH (09:03)
[2018-08-13] MEDS: TRIHEXYPHENIDYL HCL 5 MG TABLET PO SCH ×3 (09:03→16:34)
[2018-08-13] MEDS: PANTOPRAZOLE SODIUM 40 MG DR TABLET PO SCH (09:03)
[2018-08-13] MEDS: MULTIVITAMINS WITH MINERALS, THERAPEUTIC TABLET PO SCH (09:03)
[2018-08-13] MEDS: THIAMINE HCL 100 MG TABLET PO SCH ×2 (09:03→16:35)
[2018-08-13] MEDS: FOLIC ACID 1 MG TABLET PO SCH (09:03)
[2018-08-13] MEDS: CHOLECALCIFEROL (VIT D3) 5,000 UNITS CAPSULE PO SCH (09:03)
[2018-08-13] MEDS: NICOTINE 21 MG/24 HOUR PATCH TD SCH (09:08)
[2018-08-13 16:00] VITALS: BP 101/68
[2018-08-13] MEDS: FluPHENAZine HCL 10 MG TABLET PO SCH (20:03)
[2018-08-14] MEDS: FOLIC ACID 1 MG TABLET PO SCH (08:08)
[2018-08-14] MEDS: THIAMINE HCL 100 MG TABLET PO SCH ×2 (08:08→16:31)
[2018-08-14] MEDS: MULTIVITAMINS WITH MINERALS, THERAPEUTIC TABLET PO SCH (08:08)
[2018-08-14] MEDS: TRIHEXYPHENIDYL HCL 5 MG TABLET PO SCH ×3 (08:08→16:31)
[2018-08-14] MEDS: PANTOPRAZOLE SODIUM 40 MG DR TABLET PO SCH (08:08)
[2018-08-14] MEDS: NALTREXONE HCL 50 MG TABLET PO SCH (08:08)
[2018-08-14] MEDS: NICOTINE 21 MG/24 HOUR PATCH TD SCH (08:09)
[2018-08-14] MEDS: CHOLECALCIFEROL (VIT D3) 5,000 UNITS CAPSULE PO SCH (08:09)
[2018-08-14 10:30] VITALS: BP 123/54
[2018-08-14 16:15] VITALS: BP 118/72
[2018-08-14] MEDS: FluPHENAZine HCL 10 MG TABLET PO SCH (20:50)
[2018-08-15] MEDS: NICOTINE 21 MG/24 HOUR PATCH TD SCH (07:49)
[2018-08-15] MEDS: TRIHEXYPHENIDYL HCL 5 MG TABLET PO SCH ×3 (07:49→16:18)
[2018-08-15] MEDS: MULTIVITAMINS WITH MINERALS, THERAPEUTIC TABLET PO SCH (07:50)
[2018-08-15] MEDS: PANTOPRAZOLE SODIUM 40 MG DR TABLET PO SCH (07:50)
[2018-08-15] MEDS: CHOLECALCIFEROL (VIT D3) 5,000 UNITS CAPSULE PO SCH (07:50)
[2018-08-15] MEDS: THIAMINE HCL 100 MG TABLET PO SCH ×2 (07:50→16:18)
[2018-08-15] MEDS: NALTREXONE HCL 50 MG TABLET PO SCH (07:50)
[2018-08-15] MEDS: FOLIC ACID 1 MG TABLET PO SCH (07:50)
[2018-08-15 08:43] VITALS: BP 118/72
[2018-08-15] MEDS ORDERED: FLUD25I IM (17:05)
[2018-08-15] MEDS ORDERED: NALT50TA PO (17:05)
[2018-08-15] MEDS ORDERED: TRIH5TAB2 PO (17:05)
[2018-08-15] MEDS ORDERED: FLUP10 PO (17:05)
[2018-08-15 19:26] VITALS: BP 100/73
[2018-08-15] MEDS: FluPHENAZine HCL 10 MG TABLET PO SCH (20:11)
[2018-08-16 08:20] VITALS: BP 99/65
[2018-08-16] MEDS: NICOTINE 21 MG/24 HOUR PATCH TD SCH (09:40)
[2018-08-16] MEDS: TRIHEXYPHENIDYL HCL 5 MG TABLET PO SCH ×2 (09:40→12:23)
[2018-08-16] MEDS: NALTREXONE HCL 50 MG TABLET PO SCH (09:41)
[2018-08-16] MEDS: THIAMINE HCL 100 MG TABLET PO SCH (09:41)
[2018-08-16] MEDS: CHOLECALCIFEROL (VIT D3) 5,000 UNITS CAPSULE PO SCH (09:41)
[2018-08-16] MEDS: FOLIC ACID 1 MG TABLET PO SCH (09:41)
[2018-08-16] MEDS: MULTIVITAMINS WITH MINERALS, THERAPEUTIC TABLET PO SCH (09:45)
[2018-08-16] MEDS: PANTOPRAZOLE SODIUM 40 MG DR TABLET PO SCH (09:46)
[2018-08-23] MEDS ORDERED: FluPHENAZine DECANOATE 25 MG/ML IM SCH (09:00)
== END 2018-08-16 12:30 | disposition home or self-care (01) | DRG 885 ==
LOC: 3EX 18:43 → UNDOADMIN 18:43
PROVIDERS: ADMIT Psychiatry & Neurology Psychiatry; ATTEND Psychiatry & Neurology Psychiatry
DX: F25.9 Schizoaffective disorder, unspecified (principal); E46 Unspecified protein-calorie malnutrition; J44.9 Chronic obstructive pulmonary disease, unspecified; D64.9 Anemia, unspecified; K21.9 Gastro-esophageal reflux disease without esophagitis; Z91.5 Personal history of self-harm; Z91.19 Patient's noncompliance with other medical treatment and regimen; Z87.01 Personal history of pneumonia (recurrent); Z28.21 Immunization not carried out because of patient refusal; Z68.21 Body mass index [BMI] 21.0-21.9, adult
CPT/HCPCS: 82306; 83036; 84439; 84443; 87081; G0378; G0481; J2680

== ENCOUNTER → 2018-09-17 | Outpatient (CLI) | payer MEDICARE, OTHER ==
[~2018-09-17] MED LIST changes: +FLUP10 PO
== END | disposition home or self-care (01) ==
LOC: LABMN 10:00
PROVIDERS: ATTEND Psychiatry & Neurology Psychiatry
DX: F20.9 Schizophrenia, unspecified (principal); I10 Essential (primary) hypertension; K21.9 Gastro-esophageal reflux disease without esophagitis; Z79.899 Other long term (current) drug therapy
CPT/HCPCS: 36415; G0481

== ENCOUNTER 2018-09-23 08:20 | Inpatient (IN) | payer MEDICARE, OTHER ==
[~2018-09-23] VITALS: Ht 172.7 cm; Wt 76.6 kg
[2018-09-23] MEDS ORDERED: DIPH25 PO (08:26)
[2018-09-23 10:26] LABS: BASOPHILS % (AUTO) 0.1 % (0.0-2.0); EOSINOPHILS % (AUTO) 0.1 % (1.0-6.0); HEMATOCRIT 41.2 % (41-53); HEMOGLOBIN 13.7 g/dL (13.5-17.5); LYMPHOCYTES % (AUTO) 6.9 % (22.0-44.0); MEAN CORPUSCULAR HEMOGLOBIN 28.9 pg (26.0-34.0); MEAN CORPUSCULAR HGB CONC 33.2 G/dL (31.0-37.0); MEAN CORPUSCULAR VOLUME 87 fL (80-100); MONOCYTES # (AUTO) 0.7 K/uL (0.1-1.0); NEUTROPHILS # (AUTO) 12.2 K/uL (1.8-7.7); PLATELET COUNT (AUTO) 213 K/uL (150-450); RED BLOOD CELL COUNT(AUTO) 4.73 MIL/uL (4.50-5.90); RED CELL DISTRIBUTION WIDTH 16.2 % (11.5-14.5)
[2018-09-23 10:29] LABS: NEUTROPHILS % (AUTO) 87.9 % (40.0-70.0)
[2018-09-23 10:36] LABS: CALCIUM, TOTAL 9.1 mg/dL (8.8-10.5); CREATININE 1.36 mg/dL (0.60-1.30); POTASSIUM 3.8 mmol/L (3.5-5.1)
[2018-09-23 10:45] LABS: APPEARANCE,URINE CLEAR (CLEAR); GLUCOSE, URINE (UA) NEGATIVE (NEGATIVE); KETONES,URINE NEGATIVE (NEGATIVE); LEUKOCYTE ESTERASE ,URINE NEGATIVE (NEGATIVE); NITRATE,URINE NEGATIVE (NEGATIVE); OCCULT BLOOD,URINE SMALL (NEGATIVE); PH,URINE 6.5 (5.0-8.0); PROTEIN,URINE SEE CONFIRM (NEGATIVE); UROBILINOGEN,URINE 0.2 mg/dL (<=1.0)
[2018-09-23 10:46] LABS: BILIRUBIN,URINE PRELIM. POSITIVE (NEGATIVE)
[2018-09-23 10:53] LABS: SULFOSALICYLIC ACID,URINE 1+ (Negative)
[2018-09-23 10:54] LABS: BACTERIA,URINE None Seen /HPF (None Seen); SQUAMOUS EPITHELIAL CELL,UR Few /LPF (None Seen); WBC,URINE 0-2 /HPF (0-5)
[2018-09-23 11:03] LABS: ALBUMIN 3.3 g/dL (3.4-5.0); BILIRUBIN,TOTAL 0.6 mg/dL (0.1-1.0); TOTAL PROTEIN, SERUM 6.4 g/dL (6.4-8.2)
[2018-09-23 11:06] LABS: AMPHET/METH SCREEN,URINE NEGATIVE (NEGATIVE); BARBITURATE SCREEN, URINE NEGATIVE (NEGATIVE); BENZODIAZEPINES SCREEN,URINE NEGATIVE (NEGATIVE); CANNABINOID SCREEN,URINE NEGATIVE (NEGATIVE); COCAINE SCREEN,URINE NEGATIVE (NEGATIVE); METHADONE SCREEN, URINE NEGATIVE (NEGATIVE); OPIATE SCREEN,URINE NEGATIVE (NEGATIVE)
[2018-09-23 11:07] LABS: PHENCYCLIDINE SCREEN,URINE NEGATIVE (NEGATIVE)
[2018-09-23] MEDS ORDERED: 0.9% SODIUM CHLORIDE 10 ML SYRINGE IVP PRN (12:15)
[2018-09-23] MEDS ORDERED: ONDANSETRON HCL 4 MG/2 ML VIAL IVP PRN (12:15)
[2018-09-23] MEDS ORDERED: ACETAMINOPHEN 325 MG TABLET PO PRN (12:15)
[2018-09-23 13:00] VITALS: BP 156/107
[2018-09-23] MEDS ORDERED: FUROSEMIDE 20 MG/2 ML VIAL IVP SCH (13:30)
[2018-09-23] MEDS: ATORVASTATIN CALCIUM 10 MG TABLET PO SCH (13:40)
[2018-09-23] MEDS: ASPIRIN 81 MG EC TABLET PO SCH (13:40)
[2018-09-23] MEDS: AmLODIPine BESYLATE 5 MG TABLET PO SCH ×2 (13:40→20:56)
[2018-09-23 15:37] VITALS: BP 159/100
[2018-09-23] MEDS: NALTREXONE HCL 50 MG TABLET PO SCH (16:15)
[2018-09-23] MEDS: HydrALAZINE HCL 25 MG TABLET PO SCH ×2 (17:51→21:00)
[2018-09-23] MEDS: PANTOPRAZOLE SODIUM 40 MG DR TABLET PO SCH (17:51)
[2018-09-23] MEDS: CHOLECALCIFEROL (VIT D3) 5,000 UNITS CAPSULE PO SCH (17:51)
[2018-09-23] MEDS ORDERED: MAGNESIUM OXIDE 400 MG TABLET PO PRN (18:00)
[2018-09-23] MEDS ORDERED: MAGNESIUM SULFATE 2 GM/WATER 50 ML IV PRN (18:00)
[2018-09-23] MEDS ORDERED: MAGNESIUM SULFATE 4 GM/WATER 100 ML IV PRN (18:00)
[2018-09-23] MEDS ORDERED: POTASSIUM CHLORIDE 20 MEQ ER TABLET PO PRN (18:00)
[2018-09-23 18:32] LABS: ALBUMIN 3.1 g/dL (3.4-5.0); CALCIUM, TOTAL 8.4 mg/dL (8.8-10.5); CREATININE 1.27 mg/dL (0.60-1.30); MAGNESIUM 1.9 mg/dL (1.80-2.40); POTASSIUM 3.6 mmol/L (3.5-5.1)
[2018-09-23] MEDS: CARVEDILOL 6.25 MG TABLET PO SCH (19:06)
[2018-09-23] MEDS: LOSARTAN POTASSIUM 25 MG TABLET PO SCH (19:07)
[2018-09-23 20:01] VITALS: BP 127/85
[2018-09-23] MEDS: FUROSEMIDE 20 MG/2 ML VIAL IVP SCH (20:22)
[2018-09-23] MEDS: FluPHENAZine HCL 10 MG TABLET PO SCH (20:56)
[2018-09-23] MEDS: TRIHEXYPHENIDYL HCL 5 MG TABLET PO SCH (20:57)
[2018-09-23] MEDS: DiphenhydrAMINE HCL 25 MG CAPSULE PO SCH (21:02)
[2018-09-23] MEDS ORDERED: SODIUM CHLORIDE 0.9% 250 ML IV ONE (23:11)
[2018-09-23] MEDS ORDERED: FUROSEMIDE 40 MG/4 ML VIAL IVP ONE (23:15)
[2018-09-23 23:22] VITALS: BP 108/81
[2018-09-23] MEDS: POTASSIUM CHL 10 MEQ/WATER 50 ML IV PRN (23:26)
[2018-09-24 04:45] VITALS: BP 131/91
[2018-09-24 06:23] LABS: BASOPHILS % (AUTO) 0.2 % (0.0-2.0); EOSINOPHILS % (AUTO) 0.5 % (1.0-6.0); HEMATOCRIT 36.1 % (41-53); HEMOGLOBIN 12.1 g/dL (13.5-17.5); LYMPHOCYTES # (AUTO) 1.8 K/uL (1.0-4.8); LYMPHOCYTES % (AUTO) 15.2 % (22.0-44.0); MEAN CORPUSCULAR HEMOGLOBIN 29.1 pg (26.0-34.0); MEAN CORPUSCULAR HGB CONC 33.5 G/dL (31.0-37.0); MEAN CORPUSCULAR VOLUME 87 fL (80-100); MONOCYTES # (AUTO) 0.8 K/uL (0.1-1.0); MONOCYTES % (AUTO) 6.6 % (2.0-9.0); NEUTROPHILS % (AUTO) 77.5 % (40.0-70.0); PLATELET COUNT (AUTO) 189 K/uL (150-450); RED BLOOD CELL COUNT(AUTO) 4.15 MIL/uL (4.50-5.90); RED CELL DISTRIBUTION WIDTH 16.5 % (11.5-14.5)
[2018-09-24 06:42] LABS: ALBUMIN 2.7 g/dL (3.4-5.0); BILIRUBIN,TOTAL 0.5 mg/dL (0.1-1.0); CREATININE 1.28 mg/dL (0.60-1.30); MAGNESIUM 1.8 mg/dL (1.80-2.40); POTASSIUM 3.6 mmol/L (3.5-5.1); TOTAL PROTEIN, SERUM 5.3 g/dL (6.4-8.2)
[2018-09-24 07:07] VITALS: BP 107/70
[2018-09-24] MEDS: PANTOPRAZOLE SODIUM 40 MG DR TABLET PO SCH (08:08)
[2018-09-24] MEDS: ASPIRIN 81 MG EC TABLET PO SCH (08:08)
[2018-09-24] MEDS: LOSARTAN POTASSIUM 25 MG TABLET PO SCH ×2 (08:09→20:15)
[2018-09-24] MEDS: TRIHEXYPHENIDYL HCL 5 MG TABLET PO SCH ×3 (08:09→20:21)
[2018-09-24] MEDS: CARVEDILOL 6.25 MG TABLET PO SCH (08:09)
[2018-09-24] MEDS: FUROSEMIDE 20 MG/2 ML VIAL IVP SCH ×2 (08:09→20:21)
[2018-09-24] MEDS: NALTREXONE HCL 50 MG TABLET PO SCH (08:10)
[2018-09-24] MEDS: CHOLECALCIFEROL (VIT D3) 5,000 UNITS CAPSULE PO SCH (08:10)
[2018-09-24] MEDS: ATORVASTATIN CALCIUM 10 MG TABLET PO SCH (08:11)
[2018-09-24] MEDS: HydrALAZINE HCL 25 MG TABLET PO SCH (08:44)
[2018-09-24] MEDS: AmLODIPine BESYLATE 5 MG TABLET PO SCH (08:44)
[2018-09-24 10:51] VITALS: BP 95/60
[2018-09-24 15:11] VITALS: BP 102/62
[2018-09-24] MEDS ORDERED: ALBUTEROL SULFATE 2.5 MG/0.5 ML NEB SOLUTION NEB PRN (17:15)
[2018-09-24] MEDS ORDERED: ZOLPIDEM TARTRATE 5 MG TABLET PO PRN (17:15)
[2018-09-24] MEDS ORDERED: ONDANSETRON HCL 4 MG/2 ML VIAL IVP PRN (17:15)
[2018-09-24] MEDS ORDERED: ACETAMINOPHEN 325 MG TABLET PO PRN (17:15)
[2018-09-24] MEDS ORDERED: HYDROCODONE/ACETAMINOPHEN 5-325 MG TABLET PO PRN (17:15)
[2018-09-24] MEDS ORDERED: BISACODYL 10 MG RECTAL RECTAL SUPPOSITORY PR PRN (17:15)
[2018-09-24] MEDS ORDERED: MORPHINE SULFATE 4 MG/ML SYRINGE IVP PRN (17:15)
[2018-09-24] MEDS ORDERED: IPRATROPIUM BROMIDE 0.5 MG/2.5 ML NEB SOLUTION NEB PRN (17:15)
[2018-09-24] MEDS ORDERED: MAGNESIUM HYDROXIDE SUSPENSION 30 ML UDCUP PO PRN (17:15)
[2018-09-24 19:49] VITALS: BP 111/71
[2018-09-24] MEDS: DOCUSATE SODIUM 100 MG CAPSULE PO SCH (20:21)
[2018-09-24] MEDS: DiphenhydrAMINE HCL 25 MG CAPSULE PO SCH (20:21)
[2018-09-24] MEDS: FluPHENAZine HCL 10 MG TABLET PO SCH (20:21)
[2018-09-24] MEDS: POTASSIUM CHL 10 MEQ/WATER 50 ML IV PRN (20:21)
[2018-09-24] MEDS: CARVEDILOL 12.5 MG TABLET PO SCH (20:21)
[2018-09-24 23:57] VITALS: BP 98/69
[2018-09-25] MEDS: POTASSIUM CHL 10 MEQ/WATER 50 ML IV PRN (01:17)
[2018-09-25 04:31] VITALS: BP 110/77
[2018-09-25 06:09] LABS: BASOPHILS % (AUTO) 0.7 % (0.0-2.0); EOSINOPHILS % (AUTO) 0.9 % (1.0-6.0); HEMATOCRIT 37.3 % (41-53); HEMOGLOBIN 12.7 g/dL (13.5-17.5); LYMPHOCYTES # (AUTO) 1.7 K/uL (1.0-4.8); LYMPHOCYTES % (AUTO) 16.4 % (22.0-44.0); MEAN CORPUSCULAR VOLUME 85 fL (80-100); MONOCYTES # (AUTO) 0.7 K/uL (0.1-1.0); MONOCYTES % (AUTO) 7.1 % (2.0-9.0); NEUTROPHILS # (AUTO) 7.6 K/uL (1.8-7.7); NEUTROPHILS % (AUTO) 74.9 % (40.0-70.0); PLATELET COUNT (AUTO) 177 K/uL (150-450); RED BLOOD CELL COUNT(AUTO) 4.37 MIL/uL (4.50-5.90); RED CELL DISTRIBUTION WIDTH 16.5 % (11.5-14.5)
[2018-09-25 06:28] LABS: ALBUMIN 2.7 g/dL (3.4-5.0); BILIRUBIN,TOTAL 0.3 mg/dL (0.1-1.0); CALCIUM, TOTAL 8.2 mg/dL (8.8-10.5); CREATININE 1.26 mg/dL (0.60-1.30); POTASSIUM 4.3 mmol/L (3.5-5.1); TOTAL PROTEIN, SERUM 5.5 g/dL (6.4-8.2)
[2018-09-25 07:11] VITALS: BP 117/72
[2018-09-25] MEDS: FUROSEMIDE 20 MG/2 ML VIAL IVP SCH ×2 (08:56→20:13)
[2018-09-25] MEDS: PANTOPRAZOLE SODIUM 40 MG/VIAL IVP SCH (08:56)
[2018-09-25] MEDS: ASPIRIN 81 MG EC TABLET PO SCH (08:57)
[2018-09-25] MEDS: HEPARIN SODIUM,PORCINE 5,000 UNITS/ML VIAL SQ SCH ×3 (08:57→15:41)
[2018-09-25] MEDS: ATORVASTATIN CALCIUM 10 MG TABLET PO SCH (08:57)
[2018-09-25] MEDS: NALTREXONE HCL 50 MG TABLET PO SCH (08:57)
[2018-09-25] MEDS: DOCUSATE SODIUM 100 MG CAPSULE PO SCH ×2 (08:57→20:08)
[2018-09-25] MEDS: CHOLECALCIFEROL (VIT D3) 5,000 UNITS CAPSULE PO SCH (08:57)
[2018-09-25] MEDS: CARVEDILOL 12.5 MG TABLET PO SCH ×2 (09:00→22:03)
[2018-09-25] MEDS: TRIHEXYPHENIDYL HCL 5 MG TABLET PO SCH ×3 (09:05→20:08)
[2018-09-25] MEDS: LOSARTAN POTASSIUM 25 MG TABLET PO SCH ×2 (10:20→21:00)
[2018-09-25 11:02] VITALS: BP 123/74
[2018-09-25] MEDS ORDERED: [UNRECOGNIZED DRUG - OTHER] INJ ONE (12:40)
[2018-09-25 15:14] VITALS: BP 117/83
[2018-09-25] MEDS: DiphenhydrAMINE HCL 25 MG CAPSULE PO SCH (20:08)
[2018-09-25] MEDS: FluPHENAZine HCL 10 MG TABLET PO SCH (20:09)
[2018-09-25 20:15] VITALS: BP 114/70
[2018-09-25 21:09] LABS: GLUCOMETER DEV NAME(LOC) 5N 1P; GLUCOSE,POINT OF CARE 140 MG/DL (70-110)
[2018-09-26] VITALS (7 sets, daily range): BP systolic 100–122; BP diastolic 60–84
[2018-09-26] MEDS: HEPARIN SODIUM,PORCINE 5,000 UNITS/ML VIAL SQ SCH ×4 (00:29→23:32)
[2018-09-26 06:29] LABS: BASOPHILS % (AUTO) 0.5 % (0.0-2.0); EOSINOPHILS % (AUTO) 2.2 % (1.0-6.0); HEMATOCRIT 36.3 % (41-53); HEMOGLOBIN 12.4 g/dL (13.5-17.5); LYMPHOCYTES # (AUTO) 2.1 K/uL (1.0-4.8); LYMPHOCYTES % (AUTO) 26.2 % (22.0-44.0); MEAN CORPUSCULAR HEMOGLOBIN 29.5 pg (26.0-34.0); MEAN CORPUSCULAR HGB CONC 34.3 G/dL (31.0-37.0); MEAN CORPUSCULAR VOLUME 86 fL (80-100); MONOCYTES # (AUTO) 0.6 K/uL (0.1-1.0); MONOCYTES % (AUTO) 7.5 % (2.0-9.0); NEUTROPHILS # (AUTO) 5.2 K/uL (1.8-7.7); NEUTROPHILS % (AUTO) 63.6 % (40.0-70.0); PLATELET COUNT (AUTO) 186 K/uL (150-450); RED BLOOD CELL COUNT(AUTO) 4.21 MIL/uL (4.50-5.90); RED CELL DISTRIBUTION WIDTH 15.7 % (11.5-14.5)
[2018-09-26 06:54] LABS: ALANINE AMINOTRANSFERASE 43 U/L (12-78); ALBUMIN 2.6 g/dL (3.4-5.0); ALKALINE PHOSPHATASE 64 U/L (46-116); ANION GAP 4 mmol/L (8-16); ASPARTATE AMINOTRANSFERASE 15 U/L (15-37); BILIRUBIN,TOTAL 0.3 mg/dL (0.1-1.0); CALCIUM, TOTAL 7.8 mg/dL (8.8-10.5); CARBON DIOXIDE 29 mmol/L (22-29); CHLORIDE 101 mmol/L (98-107); CREATININE 1.12 mg/dL (0.60-1.30); GLOMERULAR FILTR. RATE CALC > 60 mL/min (>60); GLUCOSE,RANDOM 103 mg/dL (70-110); POTASSIUM 3.9 mmol/L (3.5-5.1); SODIUM SERUM 134 mmol/L (136-145); TOTAL PROTEIN, SERUM 4.9 g/dL (6.4-8.2); UREA NITROGEN, BLOOD 38 mg/dL (7-18)
[2018-09-26] MEDS: TRIHEXYPHENIDYL HCL 5 MG TABLET PO SCH ×3 (08:36→21:00)
[2018-09-26] MEDS: PANTOPRAZOLE SODIUM 40 MG/VIAL IVP SCH (08:36)
[2018-09-26] MEDS: DOCUSATE SODIUM 100 MG CAPSULE PO SCH ×2 (08:36→21:00)
[2018-09-26] MEDS: CHOLECALCIFEROL (VIT D3) 5,000 UNITS CAPSULE PO SCH (08:36)
[2018-09-26] MEDS: FUROSEMIDE 20 MG/2 ML VIAL IVP SCH ×2 (08:36→21:00)
[2018-09-26] MEDS: NALTREXONE HCL 50 MG TABLET PO SCH (08:36)
[2018-09-26] MEDS: ASPIRIN 81 MG EC TABLET PO SCH (08:36)
[2018-09-26] MEDS: LOSARTAN POTASSIUM 25 MG TABLET PO SCH ×2 (09:00→21:00)
[2018-09-26] MEDS: CARVEDILOL 12.5 MG TABLET PO SCH ×2 (10:26→21:00)
[2018-09-26] MEDS: ATORVASTATIN CALCIUM 10 MG TABLET PO SCH (10:26)
[2018-09-26] MEDS: FluPHENAZine HCL 10 MG TABLET PO SCH (21:00)
[2018-09-26] MEDS: DiphenhydrAMINE HCL 25 MG CAPSULE PO SCH (21:00)
[2018-09-27 03:45] VITALS: BP 114/83
[2018-09-27 07:32] VITALS: BP 104/69
[2018-09-27] MEDS: NALTREXONE HCL 50 MG TABLET PO SCH (07:53)
[2018-09-27] MEDS: TRIHEXYPHENIDYL HCL 5 MG TABLET PO SCH ×2 (07:53→15:47)
[2018-09-27] MEDS: ASPIRIN 81 MG EC TABLET PO SCH (07:54)
[2018-09-27] MEDS: FUROSEMIDE 20 MG/2 ML VIAL IVP SCH (07:54)
[2018-09-27] MEDS: DOCUSATE SODIUM 100 MG CAPSULE PO SCH (07:54)
[2018-09-27] MEDS: CHOLECALCIFEROL (VIT D3) 5,000 UNITS CAPSULE PO SCH (07:54)
[2018-09-27] MEDS: HEPARIN SODIUM,PORCINE 5,000 UNITS/ML VIAL SQ SCH ×2 (07:54→15:47)
[2018-09-27] MEDS: ATORVASTATIN CALCIUM 10 MG TABLET PO SCH (07:54)
[2018-09-27] MEDS: PANTOPRAZOLE SODIUM 40 MG/VIAL IVP SCH (07:55)
[2018-09-27] MEDS: LOSARTAN POTASSIUM 25 MG TABLET PO SCH (09:00)
[2018-09-27] MEDS ORDERED: DULoxetine HCL 20 MG CAPSULE PO SCH (09:00)
[2018-09-27] MEDS: CARVEDILOL 12.5 MG TABLET PO SCH (09:00)
[2018-09-27 11:16] VITALS: BP 122/63
[2018-09-27] MEDS ORDERED: ASPI81 PO (15:05)
[2018-09-27] MEDS ORDERED: ATOR10TA84 PO (15:05)
[2018-09-27] MEDS ORDERED: DSS100 PO (15:09)
[2018-09-27] MEDS ORDERED: CARV12 PO (15:09)
[2018-09-27] MEDS ORDERED: FURO20 PO (15:10)
[2018-09-27] MEDS ORDERED: DULO20CA30 PO (15:10)
[2018-09-27] MEDS ORDERED: HEPA500018 SQ (15:11)
[2018-09-27] MEDS ORDERED: LOSA25TA16 PO (15:12)
[2018-09-27] MEDS ORDERED: ACET-784 PO (15:13)
[2018-09-27 15:48] VITALS: BP 119/72
== END 2018-09-27 18:30 | DRG 280 ==
LOC: EMS 08:21 → 5S 11:42 → UNDODISIN 09-26 17:10
PROVIDERS: ADMIT Hospitalist; ATTEND Hospitalist
PROC: 5A09357 Assistance with Respiratory Ventilation, Less than 24 Consecutive Hours, Continuous Positive Airway Pressure (ICD-10-PCS; principal; 2018-09-23)
PROC: 4A02XM4 Measurement of Cardiac Total Activity, External Approach (ICD-10-PCS; 2018-09-26)
PROC: 3E033HZ Introduction of Radioactive Substance into Peripheral Vein, Percutaneous Approach (ICD-10-PCS; 2018-09-26)
DX: I21.4 Non-ST elevation (NSTEMI) myocardial infarction (principal); J96.00 Acute respiratory failure, unspecified whether with hypoxia or hypercapnia; I50.23 Acute on chronic systolic (congestive) heart failure; F20.0 Paranoid schizophrenia; I47.2 Ventricular tachycardia; I11.0 Hypertensive heart disease with heart failure; F17.210 Nicotine dependence, cigarettes, uncomplicated; J44.9 Chronic obstructive pulmonary disease, unspecified; F32.9 Major depressive disorder, single episode, unspecified; G40.909 Epilepsy, unspecified, not intractable, without status epilepticus; I25.10 Atherosclerotic heart disease of native coronary artery without angina pectoris; K21.9 Gastro-esophageal reflux disease without esophagitis; Z82.49 Family history of ischemic heart disease and other diseases of the circulatory system; Z87.01 Personal history of pneumonia (recurrent); Z79.899 Other long term (current) drug therapy; Z91.14 Patient's other noncompliance with medication regimen
CPT/HCPCS: 78451; 83735; 87040; 93005; 93306; 94660; 97116; 97161; 97165; 97535; A9505; C9113; G0378; J1644; J1940; J3480; J7050

== ENCOUNTER → 2019-01-03 | Outpatient (CLI) | payer MEDICARE, MEDICAID, SELFPAY ==
[~2019-01-03] VITALS: Ht 175.3 cm; Wt 63.5 kg
[~2019-01-03] MED LIST changes: +ACET-784 PO; +ASPI81 PO; +ATOR10TA84 PO; +CARV12 PO; +DIPH25 PO; +DSS100 PO; +DULO20CA30 PO; +FURO20 PO; +HEPA500018 SQ; +LOSA25TA41 PO; -NALT50TA6 PO
[2019-01-03 11:42] VITALS: BP 110/54
== END | disposition home or self-care (01) ==
LOC: SRCNTR 10:59
PROVIDERS: ATTEND Internal Medicine Clinical Cardiac Electrophysiology
DX: I11.0 Hypertensive heart disease with heart failure (principal); I50.9 Heart failure, unspecified; F20.9 Schizophrenia, unspecified; K21.9 Gastro-esophageal reflux disease without esophagitis; F32.9 Major depressive disorder, single episode, unspecified; Z87.891 Personal history of nicotine dependence
CPT/HCPCS: G0463

== ENCOUNTER → 2019-01-15 | Outpatient (CLI) | payer MEDICARE, MEDICAID ==
[~2019-01-15] MED LIST changes: -ACET-784 PO; -ASPI81 PO; -CHOL50004 PO; -DIPH25 PO; -DSS100 PO; -HEPA500018 SQ; -PANT40TA25 PO
== END | disposition home or self-care (01) ==
LOC: LABMN 11:00
PROVIDERS: ATTEND Psychiatry & Neurology Psychiatry
DX: F20.9 Schizophrenia, unspecified (principal); Z79.899 Other long term (current) drug therapy
CPT/HCPCS: 36415; G0481

== ENCOUNTER → 2019-02-13 | Outpatient (CLI) | payer MEDICARE, MEDICAID | END | disposition home or self-care (01) | LOC: RADPV 13:46 | PROVIDERS: ATTEND Internal Medicine Cardiovascular Disease | DX: I97.131 Postprocedural heart failure following other surgery (principal); I25.10 Atherosclerotic heart disease of native coronary artery without angina pectoris; I50.9 Heart failure, unspecified; J90 Pleural effusion, not elsewhere classified | CPT/HCPCS: 93306 ==

== ENCOUNTER → 2019-02-18 | Outpatient (CLI) | payer MEDICARE, MEDICAID, SELFPAY ==
[~2019-02-18] VITALS: Ht 175.3 cm; Wt 59.0 kg
[2019-02-18 10:47] VITALS: BP 118/67
== END | disposition home or self-care (01) ==
LOC: SRCNTR 10:18
PROVIDERS: ATTEND Internal Medicine Clinical Cardiac Electrophysiology
DX: F20.9 Schizophrenia, unspecified (principal); K21.9 Gastro-esophageal reflux disease without esophagitis; I10 Essential (primary) hypertension
CPT/HCPCS: G0463

== ENCOUNTER 2019-05-21 14:21 | Inpatient (IN) | payer MEDICARE, MEDICAID ==
[~2019-05-21] VITALS: Ht 172.7 cm; Wt 57.7 kg
[2019-05-21 15:03] VITALS: BP 124/83
[2019-05-21] MEDS ORDERED: PROMETHAZINE HCL 25 MG TABLET PO PRN (15:45)
[2019-05-21] MEDS ORDERED: ACETAMINOPHEN 325 MG TABLET PO PRN (15:45)
[2019-05-21] MEDS ORDERED: MAGNESIUM HYDROXIDE SUSPENSION 30 ML UDCUP PO PRN (15:45)
[2019-05-21] MEDS ORDERED: TUBERCULIN, PURIFIED PROTEIN DERIVATIVE 5 TU/0.1 ML SYRINGE ID ONE (15:45)
[2019-05-21] MEDS ORDERED: LOPERAMIDE HCL 2 MG CAPSULE PO PRN (15:45)
[2019-05-21] MEDS ORDERED: GuaiFENesin/D-METHORPHAN [SUGAR-FREE] 200-20MG/10 ML SYRUP UDCUP PO PRN (15:45)
[2019-05-21] MEDS ORDERED: FluPHENAZine HCL 5 MG TABLET PO PRN (15:45)
[2019-05-21] MEDS ORDERED: HydrOXYzine PAMOATE 50 MG CAPSULE PO PRN (15:45)
[2019-05-21 16:11] VITALS: BP 119/73
[2019-05-21] MEDS ORDERED: CARVEDILOL 6.25 MG TABLET PO SCH ×2 (17:00)
[2019-05-21] MEDS: THIAMINE HCL 100 MG TABLET PO SCH (17:33)
[2019-05-21] MEDS: TRIHEXYPHENIDYL HCL 5 MG TABLET PO SCH (17:33)
[2019-05-21] MEDS ORDERED: PNEUMOCOCCAL VACCINE POLYVALENT 0.5 ML VIAL [PPSV23] IM ONE (18:15)
[2019-05-21] MEDS: MAG HYDROX/AL HYDROX/SIMETH ES 30 ML SUSPENSION UDCUP PO PRN ×2 (18:47→22:57)
[2019-05-21] MEDS: FluPHENAZine HCL 10 MG TABLET PO SCH (20:17)
[2019-05-22 04:54] VITALS: BP 152/83
[2019-05-22] MEDS: MAG HYDROX/AL HYDROX/SIMETH ES 30 ML SUSPENSION UDCUP PO PRN ×4 (04:56→23:52)
[2019-05-22 07:46] LABS: BASOPHILS % (AUTO) 0.2 % (0.0-2.0); EOSINOPHILS % (AUTO) 1.2 % (1.0-6.0); HEMATOCRIT 42.5 % (41-53); LYMPHOCYTES # (AUTO) 1.3 K/uL (1.0-4.8); LYMPHOCYTES % (AUTO) 12.3 % (22.0-44.0); MEAN CORPUSCULAR HEMOGLOBIN 30.5 pg (26.0-34.0); MEAN CORPUSCULAR HGB CONC 33.1 G/dL (31.0-37.0); MEAN CORPUSCULAR VOLUME 92 fL (80-100); MONOCYTES # (AUTO) 0.8 K/uL (0.1-1.0); NEUTROPHILS # (AUTO) 8.6 K/uL (1.8-7.7); NEUTROPHILS % (AUTO) 79.3 % (40.0-70.0); PLATELET COUNT (AUTO) 145 K/uL (150-450); RED CELL DISTRIBUTION WIDTH 14.4 % (11.5-14.5)
[2019-05-22 07:55] LABS: HEMOGLOBIN A1C 6.3 % (4.5-6.2)
[2019-05-22 08:13] LABS: ALANINE AMINOTRANSFERASE 36 U/L (12-78); ALBUMIN 3.3 g/dL (3.4-5.0); ALKALINE PHOSPHATASE 77 U/L (46-116); ANION GAP 6 mmol/L (8-16); ASPARTATE AMINOTRANSFERASE 22 U/L (15-37); BILIRUBIN,TOTAL 0.4 mg/dL (0.1-1.0); CALCIUM, TOTAL 8.9 mg/dL (8.8-10.5); CARBON DIOXIDE 31 mmol/L (22-29); CHLORIDE 106 mmol/L (98-107); CREATININE 1.15 mg/dL (0.60-1.30); FREE T4 (FREE THYROXINE) 1.13 ng/dL (0.76-1.46); GLOMERULAR FILTR. RATE CALC > 60 mL/min (>60); GLUCOSE,RANDOM 107 mg/dL (70-110); POTASSIUM 3.7 mmol/L (3.5-5.1); SODIUM SERUM 143 mmol/L (136-145); THYROID STIMULATING HORMONE 0.81 uIU/mL (0.36-3.74); TOTAL PROTEIN, SERUM 6.3 g/dL (6.4-8.2); UREA NITROGEN, BLOOD 12 mg/dL (7-18)
[2019-05-22 08:27] VITALS: BP 152/99
[2019-05-22] MEDS ORDERED: FUROSEMIDE 20 MG TABLET PO SCH (09:00)
[2019-05-22] MEDS ORDERED: LOSARTAN POTASSIUM 25 MG TABLET PO SCH (09:00)
[2019-05-22] MEDS: NALTREXONE HCL 50 MG TABLET PO SCH (09:34)
[2019-05-22] MEDS: MULTIVITAMINS WITH MINERALS, THERAPEUTIC TABLET PO SCH (09:35)
[2019-05-22] MEDS: CARVEDILOL 3.125 MG TABLET PO SCH ×2 (09:35→16:57)
[2019-05-22] MEDS: ATORVASTATIN CALCIUM 10 MG TABLET PO SCH (09:36)
[2019-05-22] MEDS: FOLIC ACID 1 MG TABLET PO SCH (09:36)
[2019-05-22] MEDS: THIAMINE HCL 100 MG TABLET PO SCH ×2 (09:36→16:57)
[2019-05-22] MEDS: TRIHEXYPHENIDYL HCL 5 MG TABLET PO SCH ×2 (09:36→12:28)
[2019-05-22] MEDS: DULoxetine HCL 20 MG CAPSULE PO SCH (09:36)
[2019-05-22] MEDS: LOSARTAN POTASSIUM 25 MG TABLET PO SCH ×2 (10:09→16:57)
[2019-05-22 13:34] VITALS: BP 143/80
[2019-05-22] MEDS: PANTOPRAZOLE SODIUM 40 MG DR TABLET PO SCH (15:06)
[2019-05-22 16:30] VITALS: BP 157/100
[2019-05-22] MEDS: AMANTADINE HCL 100 MG CAPSULE PO SCH (17:00)
[2019-05-22 17:36] VITALS: BP 131/78
[2019-05-22] MEDS: FUROSEMIDE 20 MG TABLET PO SCH (17:49)
[2019-05-22 18:49] LABS: GLUCOMETER DEV NAME(LOC) BV3N.; GLUCOSE,POINT OF CARE 161 MG/DL (70-110)
[2019-05-22] MEDS: FluPHENAZine HCL 10 MG TABLET PO SCH (23:45)
[2019-05-22] MEDS: ZOLPIDEM TARTRATE 10 MG TABLET PO PRN (23:52)
[2019-05-23 00:01] VITALS: BP 130/76
[2019-05-23] MEDS: LOSARTAN POTASSIUM 25 MG TABLET PO SCH ×2 (09:37→16:33)
[2019-05-23] MEDS: NALTREXONE HCL 50 MG TABLET PO SCH (09:37)
[2019-05-23] MEDS: FUROSEMIDE 20 MG TABLET PO SCH ×2 (09:37→16:32)
[2019-05-23] MEDS: THIAMINE HCL 100 MG TABLET PO SCH ×2 (09:37→16:32)
[2019-05-23] MEDS: AMANTADINE HCL 100 MG CAPSULE PO SCH ×3 (09:37→16:33)
[2019-05-23] MEDS: ATORVASTATIN CALCIUM 10 MG TABLET PO SCH (09:37)
[2019-05-23] MEDS: MULTIVITAMINS WITH MINERALS, THERAPEUTIC TABLET PO SCH (09:37)
[2019-05-23] MEDS: DULoxetine HCL 20 MG CAPSULE PO SCH (09:37)
[2019-05-23] MEDS: FOLIC ACID 1 MG TABLET PO SCH (09:37)
[2019-05-23] MEDS: PANTOPRAZOLE SODIUM 40 MG DR TABLET PO SCH (09:37)
[2019-05-23] MEDS: CARVEDILOL 12.5 MG TABLET PO SCH ×2 (09:38→16:33)
[2019-05-23 10:18] VITALS: BP 130/73
[2019-05-23] MEDS ORDERED: OLANZapine 5 MG RAPDIS TABLET PO PRN (16:15)
[2019-05-23] MEDS: NICOTINE 14 MG/24 HOUR PATCH TD SCH (16:32)
[2019-05-23 16:47] VITALS: BP 129/74
[2019-05-23] MEDS: FLUTICASONE/VILANTEROL 100-25 MCG/INH INHALER [14] IH SCH (17:38)
[2019-05-23] MEDS: TIOTROPIUM BROMIDE 18 MCG/INH HANDIHALER [5] IH SCH (17:39)
[2019-05-23] MEDS: MAG HYDROX/AL HYDROX/SIMETH ES 30 ML SUSPENSION UDCUP PO PRN (20:38)
[2019-05-24 08:00] VITALS: BP 158/82
[2019-05-24] MEDS: DULoxetine HCL 20 MG CAPSULE PO SCH (09:29)
[2019-05-24] MEDS: ATORVASTATIN CALCIUM 10 MG TABLET PO SCH (09:29)
[2019-05-24] MEDS: CARVEDILOL 12.5 MG TABLET PO SCH ×2 (09:29→16:51)
[2019-05-24] MEDS: ARIPiprazole 15 MG TABLET PO SCH (09:29)
[2019-05-24] MEDS: LOSARTAN POTASSIUM 25 MG TABLET PO SCH ×2 (09:29→16:51)
[2019-05-24] MEDS: PANTOPRAZOLE SODIUM 40 MG DR TABLET PO SCH (09:30)
[2019-05-24] MEDS: TIOTROPIUM BROMIDE 18 MCG/INH HANDIHALER [5] IH SCH (09:30)
[2019-05-24] MEDS: NALTREXONE HCL 50 MG TABLET PO SCH (09:30)
[2019-05-24] MEDS: FLUTICASONE/VILANTEROL 100-25 MCG/INH INHALER [14] IH SCH (09:30)
[2019-05-24] MEDS: MULTIVITAMINS WITH MINERALS, THERAPEUTIC TABLET PO SCH (09:30)
[2019-05-24] MEDS: AMANTADINE HCL 100 MG CAPSULE PO SCH ×3 (09:30→16:51)
[2019-05-24] MEDS: FOLIC ACID 1 MG TABLET PO SCH (09:30)
[2019-05-24] MEDS: THIAMINE HCL 100 MG TABLET PO SCH ×2 (09:30→16:50)
[2019-05-24] MEDS: FUROSEMIDE 20 MG TABLET PO SCH ×2 (09:30→16:51)
[2019-05-24] MEDS: NICOTINE 14 MG/24 HOUR PATCH TD SCH (09:41)
[2019-05-24 10:38] VITALS: BP 118/65
[2019-05-24 19:14] VITALS: BP 128/87
[2019-05-24] MEDS: ZOLPIDEM TARTRATE 10 MG TABLET PO PRN (20:42)
[2019-05-25 04:01] VITALS: BP 111/80
[2019-05-25] MEDS: LORazepam 2 MG TABLET PO PRN ×2 (04:04→23:39)
[2019-05-25 08:00] VITALS: BP 134/87
[2019-05-25] MEDS: NICOTINE 14 MG/24 HOUR PATCH TD SCH (10:07)
[2019-05-25] MEDS: TIOTROPIUM BROMIDE 18 MCG/INH HANDIHALER [5] IH SCH (10:07)
[2019-05-25] MEDS: FUROSEMIDE 20 MG TABLET PO SCH ×2 (10:08→17:00)
[2019-05-25] MEDS: FLUTICASONE/VILANTEROL 100-25 MCG/INH INHALER [14] IH SCH (10:08)
[2019-05-25] MEDS: ATORVASTATIN CALCIUM 10 MG TABLET PO SCH (10:08)
[2019-05-25] MEDS: DULoxetine HCL 20 MG CAPSULE PO SCH (10:08)
[2019-05-25] MEDS: LOSARTAN POTASSIUM 25 MG TABLET PO SCH ×2 (10:08→17:00)
[2019-05-25] MEDS: PANTOPRAZOLE SODIUM 40 MG DR TABLET PO SCH (10:08)
[2019-05-25] MEDS: MULTIVITAMINS WITH MINERALS, THERAPEUTIC TABLET PO SCH (10:08)
[2019-05-25] MEDS: NALTREXONE HCL 50 MG TABLET PO SCH (10:08)
[2019-05-25] MEDS: ARIPiprazole 15 MG TABLET PO SCH (10:08)
[2019-05-25] MEDS: THIAMINE HCL 100 MG TABLET PO SCH ×2 (10:08→17:43)
[2019-05-25] MEDS: FOLIC ACID 1 MG TABLET PO SCH (10:08)
[2019-05-25] MEDS: CARVEDILOL 12.5 MG TABLET PO SCH ×2 (10:09→17:43)
[2019-05-25] MEDS: AMANTADINE HCL 100 MG CAPSULE PO SCH ×3 (10:09→17:43)
[2019-05-25] MEDS: MAG HYDROX/AL HYDROX/SIMETH ES 30 ML SUSPENSION UDCUP PO PRN (14:46)
[2019-05-25 17:45] VITALS: BP 106/73
[2019-05-25] MEDS: ZOLPIDEM TARTRATE 10 MG TABLET PO PRN (23:39)
[2019-05-25 23:40] VITALS: BP 102/56
[2019-05-26 08:00] VITALS: BP 108/74
[2019-05-26] MEDS: FLUTICASONE/VILANTEROL 100-25 MCG/INH INHALER [14] IH SCH (09:27)
[2019-05-26] MEDS: TIOTROPIUM BROMIDE 18 MCG/INH HANDIHALER [5] IH SCH (09:27)
[2019-05-26] MEDS: FUROSEMIDE 20 MG TABLET PO SCH ×2 (09:29→17:41)
[2019-05-26] MEDS: DULoxetine HCL 20 MG CAPSULE PO SCH (09:29)
[2019-05-26] MEDS: FOLIC ACID 1 MG TABLET PO SCH (09:29)
[2019-05-26] MEDS: PANTOPRAZOLE SODIUM 40 MG DR TABLET PO SCH (09:30)
[2019-05-26] MEDS: NALTREXONE HCL 50 MG TABLET PO SCH (09:30)
[2019-05-26] MEDS: THIAMINE HCL 100 MG TABLET PO SCH ×2 (09:30→17:41)
[2019-05-26] MEDS: LOSARTAN POTASSIUM 25 MG TABLET PO SCH ×2 (09:30→17:42)
[2019-05-26] MEDS: MULTIVITAMINS WITH MINERALS, THERAPEUTIC TABLET PO SCH (09:30)
[2019-05-26] MEDS: AMANTADINE HCL 100 MG CAPSULE PO SCH ×3 (09:30→17:41)
[2019-05-26] MEDS: ARIPiprazole 15 MG TABLET PO SCH (09:30)
[2019-05-26] MEDS: CARVEDILOL 12.5 MG TABLET PO SCH ×2 (09:31→17:42)
[2019-05-26] MEDS: ATORVASTATIN CALCIUM 10 MG TABLET PO SCH (09:31)
[2019-05-26] MEDS: NICOTINE 14 MG/24 HOUR PATCH TD SCH (09:34)
[2019-05-26 16:30] VITALS: BP 118/61
[2019-05-26] MEDS ORDERED: ARIP15TA2 PO (17:27)
[2019-05-26] MEDS ORDERED: DULO20CA30 PO (17:27)
[2019-05-26] MEDS ORDERED: AMAN100C12 PO (17:27)
[2019-05-26] MEDS ORDERED: NALT50TA PO (17:27)
[2019-05-26] MEDS: LORazepam 2 MG TABLET PO PRN (19:07)
[2019-05-26] MEDS: ZOLPIDEM TARTRATE 10 MG TABLET PO PRN (20:13)
[2019-05-27 03:42] VITALS: BP 126/75
[2019-05-27] MEDS: PANTOPRAZOLE SODIUM 40 MG DR TABLET PO SCH (08:48)
[2019-05-27] MEDS: FOLIC ACID 1 MG TABLET PO SCH (08:48)
[2019-05-27] MEDS: ARIPiprazole 15 MG TABLET PO SCH (08:48)
[2019-05-27] MEDS: NALTREXONE HCL 50 MG TABLET PO SCH (08:49)
[2019-05-27] MEDS: DULoxetine HCL 20 MG CAPSULE PO SCH (08:49)
[2019-05-27] MEDS: FUROSEMIDE 20 MG TABLET PO SCH (08:49)
[2019-05-27] MEDS: MULTIVITAMINS WITH MINERALS, THERAPEUTIC TABLET PO SCH (08:49)
[2019-05-27] MEDS: ATORVASTATIN CALCIUM 10 MG TABLET PO SCH (08:49)
[2019-05-27] MEDS: TIOTROPIUM BROMIDE 18 MCG/INH HANDIHALER [5] IH SCH (08:50)
[2019-05-27] MEDS: CARVEDILOL 12.5 MG TABLET PO SCH (08:50)
[2019-05-27] MEDS: LOSARTAN POTASSIUM 25 MG TABLET PO SCH (08:50)
[2019-05-27] MEDS: FLUTICASONE/VILANTEROL 100-25 MCG/INH INHALER [14] IH SCH (08:51)
[2019-05-27] MEDS: THIAMINE HCL 100 MG TABLET PO SCH (08:52)
[2019-05-27] MEDS: AMANTADINE HCL 100 MG CAPSULE PO SCH ×2 (08:52→13:00)
[2019-05-27] MEDS: NICOTINE 14 MG/24 HOUR PATCH TD SCH (08:54)
[2019-05-27 10:02] VITALS: BP 117/75
[2019-05-27] MEDS ORDERED: PANT40TA25 PO (11:22)
[2019-05-27] MEDS ORDERED: FLUT1AER IH (11:22)
[2019-05-27] MEDS ORDERED: TIOT185 IH (11:23)
[2019-06-04] MEDS ORDERED: FluPHENAZine DECANOATE 25 MG/ML IM SCH (09:00)
== END 2019-05-27 12:30 | disposition home or self-care (01) | DRG 885 ==
LOC: B3A 15:46 → 3EI 05-22 20:28
PROVIDERS: ADMIT Psychiatry & Neurology Psychiatry; ATTEND Psychiatry & Neurology Psychiatry
DX: F20.0 Paranoid schizophrenia (principal); I42.9 Cardiomyopathy, unspecified; I50.22 Chronic systolic (congestive) heart failure; R45.851 Suicidal ideations; E78.5 Hyperlipidemia, unspecified; F17.210 Nicotine dependence, cigarettes, uncomplicated; G47.00 Insomnia, unspecified; I11.0 Hypertensive heart disease with heart failure; D69.6 Thrombocytopenia, unspecified; I95.9 Hypotension, unspecified; I25.10 Atherosclerotic heart disease of native coronary artery without angina pectoris; J44.9 Chronic obstructive pulmonary disease, unspecified; Z80.2 Family history of malignant neoplasm of other respiratory and intrathoracic organs; Z82.49 Family history of ischemic heart disease and other diseases of the circulatory system; Z95.810 Presence of automatic (implantable) cardiac defibrillator; Z28.21 Immunization not carried out because of patient refusal; Z79.899 Other long term (current) drug therapy
CPT/HCPCS: 83036; 84439; 84443; 86592; G0481

== ENCOUNTER 2019-05-22 18:18 | Emergency (ER) | payer MEDICARE, MEDICAID ==
[~2019-05-22] VITALS: Ht 177.8 cm; Wt 61.4 kg
[2019-05-22 18:57] LABS: BASOPHILS % (AUTO) 0.3 % (0.0-2.0); EOSINOPHILS % (AUTO) 0.6 % (1.0-6.0); HEMATOCRIT 40.2 % (41-53); HEMOGLOBIN 13.2 g/dL (13.5-17.5); LYMPHOCYTES # (AUTO) 1.3 K/uL (1.0-4.8); LYMPHOCYTES % (AUTO) 12.2 % (22.0-44.0); MEAN CORPUSCULAR HEMOGLOBIN 30.5 pg (26.0-34.0); MEAN CORPUSCULAR HGB CONC 32.9 G/dL (31.0-37.0); MEAN CORPUSCULAR VOLUME 93 fL (80-100); MONOCYTES # (AUTO) 0.6 K/uL (0.1-1.0); MONOCYTES % (AUTO) 5.4 % (2.0-9.0); NEUTROPHILS # (AUTO) 8.6 K/uL (1.8-7.7); NEUTROPHILS % (AUTO) 81.5 % (40.0-70.0); PLATELET COUNT (AUTO) 132 K/uL (150-450); RED BLOOD CELL COUNT(AUTO) 4.33 MIL/uL (4.50-5.90); RED CELL DISTRIBUTION WIDTH 14.9 % (11.5-14.5)
[2019-05-22] MEDS ORDERED: ASPIRIN 81 MG CHEWABLE TABLET PO ONE (19:00)
[2019-05-22 19:17] LABS: INR 1.1 (0.9-1.1); PROTHROMBIN TIME 11.3 SEC (9.4-11.6)
[2019-05-22 19:18] LABS: ALANINE AMINOTRANSFERASE 33 U/L (12-78); ALBUMIN 3.1 g/dL (3.4-5.0); ALKALINE PHOSPHATASE 74 U/L (46-116); ANION GAP 6 mmol/L (8-16); ASPARTATE AMINOTRANSFERASE 18 U/L (15-37); BILIRUBIN,TOTAL 0.2 mg/dL (0.1-1.0); CALCIUM, TOTAL 8.8 mg/dL (8.8-10.5); CARBON DIOXIDE 27 mmol/L (22-29); CHLORIDE 104 mmol/L (98-107); CREATINE KINASE, TOTAL ONLY 54 U/L (39-308); CREATININE 1.06 mg/dL (0.60-1.30); GLOMERULAR FILTR. RATE CALC > 60 mL/min (>60); GLUCOSE,RANDOM 155 mg/dL (70-110); SODIUM SERUM 137 mmol/L (136-145); TOTAL PROTEIN, SERUM 6.1 g/dL (6.4-8.2)
[2019-05-22 19:24] LABS: UREA NITROGEN, BLOOD 16 mg/dL (7-18)
[2019-05-22 19:31] LABS: B-TYPE NATRIURETIC PEPTIDE 1200 pg/mL (0-100)
[2019-05-22 19:35] LABS: AMPHET/METH SCREEN,URINE NEGATIVE (NEGATIVE); BARBITURATE SCREEN, URINE NEGATIVE (NEGATIVE); BENZODIAZEPINES SCREEN,URINE NEGATIVE (NEGATIVE); CANNABINOID SCREEN,URINE NEGATIVE (NEGATIVE); COCAINE SCREEN,URINE NEGATIVE (NEGATIVE); METHADONE SCREEN, URINE NEGATIVE (NEGATIVE); OPIATE SCREEN,URINE NEGATIVE (NEGATIVE)
[2019-05-22 19:36] LABS: PHENCYCLIDINE SCREEN,URINE NEGATIVE (NEGATIVE)
[2019-05-22 19:38] LABS: APPEARANCE,URINE CLOUDY (CLEAR); BILIRUBIN,URINE NEGATIVE (NEGATIVE); GLUCOSE, URINE (UA) NEGATIVE (NEGATIVE); KETONES,URINE NEGATIVE (NEGATIVE); LEUKOCYTE ESTERASE ,URINE NEGATIVE (NEGATIVE); NITRATE,URINE NEGATIVE (NEGATIVE); OCCULT BLOOD,URINE MODERATE (NEGATIVE); PH,URINE 8.5 (5.0-8.0); PROTEIN,URINE SEE CONFIRM (NEGATIVE); UROBILINOGEN,URINE 0.2 mg/dL (<=1.0)
[2019-05-22 20:07] LABS: SULFOSALICYLIC ACID,URINE Trace (Negative)
[2019-05-22 20:10] LABS: BACTERIA,URINE Few /HPF (None Seen); SQUAMOUS EPITHELIAL CELL,UR Rare /LPF (None Seen); WBC,URINE 0-2 /HPF (0-5)
[2019-05-22 22:10] VITALS: BP 120/64
== END 2019-05-22 23:06 | disposition other institution (70) ==
LOC: EDUNIT# 18:18 → EMS 18:20
DX: F25.1 Schizoaffective disorder, depressive type (principal); I11.0 Hypertensive heart disease with heart failure; I50.9 Heart failure, unspecified; I49.9 Cardiac arrhythmia, unspecified; K21.9 Gastro-esophageal reflux disease without esophagitis; F17.210 Nicotine dependence, cigarettes, uncomplicated; Z79.899 Other long term (current) drug therapy
CPT/HCPCS: 93005; 99406

== ENCOUNTER 2019-06-05 15:41 | Inpatient (IN) | payer MEDICARE, MEDICAID ==
[~2019-06-05] VITALS: Ht 172.7 cm; Wt 55.5 kg
[~2019-06-05 15:41] MED LIST changes: +AMAN100C12 PO; +ARIP15TA2 PO; -FLUD25I IM; -FLUP10 PO; +FLUT1AER IH; +PANT40TA25 PO; +TIOT185 IH; -TRIH5TAB2 PO
[2019-06-05 18:46] LABS: BASOPHILS % (AUTO) 0.3 % (0.0-2.0); EOSINOPHILS % (AUTO) 1.1 % (1.0-6.0); HEMATOCRIT 44.7 % (41-53); HEMOGLOBIN 14.6 g/dL (13.5-17.5); LYMPHOCYTES # (AUTO) 1.8 K/uL (1.0-4.8); LYMPHOCYTES % (AUTO) 16.1 % (22.0-44.0); MEAN CORPUSCULAR HEMOGLOBIN 30.5 pg (26.0-34.0); MEAN CORPUSCULAR HGB CONC 32.6 G/dL (31.0-37.0); MEAN CORPUSCULAR VOLUME 94 fL (80-100); MONOCYTES # (AUTO) 0.8 K/uL (0.1-1.0); NEUTROPHILS # (AUTO) 8.6 K/uL (1.8-7.7); NEUTROPHILS % (AUTO) 75.5 % (40.0-70.0); PLATELET COUNT (AUTO) 178 K/uL (150-450); RED BLOOD CELL COUNT(AUTO) 4.78 MIL/uL (4.50-5.90); RED CELL DISTRIBUTION WIDTH 14.8 % (11.5-14.5)
[2019-06-05 18:56] LABS: CALCIUM, TOTAL 9.7 mg/dL (8.8-10.5); CREATININE 1.65 mg/dL (0.60-1.30)
[2019-06-05] MEDS ORDERED: AMIODARONE HCL 150 MG in DEXTROSE 5%-WATER 97 ML IV ONE (19:00)
[2019-06-05] MEDS ORDERED: AMIODARONE HCL 360 MG in DEXTROSE 5%-WATER 242.8 ML IV ONE (19:00)
[2019-06-05] MEDS ORDERED: POTASSIUM CHLORIDE 20 MEQ ER TABLET PO ONE (19:15)
[2019-06-05] MEDS ORDERED: ONDANSETRON HCL 4 MG/2 ML VIAL IVP PRN ×2 (19:30→20:30)
[2019-06-05] MEDS ORDERED: ACETAMINOPHEN 325 MG TABLET PO PRN (19:30)
[2019-06-05] MEDS ORDERED: ASPIRIN 81 MG CHEWABLE TABLET PO ONE (19:30)
[2019-06-05] MEDS ORDERED: IPRATROPIUM BROMIDE 0.5 MG/2.5 ML NEB SOLUTION NEB PRN (20:30)
[2019-06-05] MEDS ORDERED: ZOLPIDEM TARTRATE 5 MG TABLET PO PRN (20:30)
[2019-06-05] MEDS ORDERED: MAGNESIUM HYDROXIDE SUSPENSION 30 ML UDCUP PO PRN (20:30)
[2019-06-05] MEDS ORDERED: BISACODYL 10 MG RECTAL RECTAL SUPPOSITORY PR PRN (20:30)
[2019-06-05] MEDS ORDERED: HEPARIN SODIUM,PORCINE 5,000 UNITS/ML VIAL SQ SCH (20:30)
[2019-06-05] MEDS ORDERED: ALBUTEROL SULFATE 2.5 MG/0.5 ML NEB SOLUTION NEB PRN (20:30)
[2019-06-05] MEDS: AMANTADINE HCL 100 MG CAPSULE PO SCH (22:53)
[2019-06-05] MEDS ORDERED: SODIUM CHLORIDE 0.9% 250 ML IV ONE (23:51)
[2019-06-06] VITALS: BP 99/63
[2019-06-06] MEDS ORDERED: AMIODARONE HCL 540 MG in DEXTROSE 5%-WATER 239.2 ML IV ONE ×2 (01:00)
[2019-06-06] MEDS ORDERED: AMIODARONE HCL 50 MG/ML 3 ML VIAL IV ONE (01:00)
[2019-06-06 04:00] VITALS: BP 110/74
[2019-06-06 05:11] LABS: BASOPHILS % (AUTO) 0.4 % (0.0-2.0); EOSINOPHILS % (AUTO) 1.9 % (1.0-6.0); HEMATOCRIT 41.4 % (41-53); HEMOGLOBIN 13.6 g/dL (13.5-17.5); LYMPHOCYTES # (AUTO) 2.2 K/uL (1.0-4.8); LYMPHOCYTES % (AUTO) 27.2 % (22.0-44.0); MEAN CORPUSCULAR HEMOGLOBIN 30.6 pg (26.0-34.0); MEAN CORPUSCULAR HGB CONC 32.8 G/dL (31.0-37.0); MEAN CORPUSCULAR VOLUME 93 fL (80-100); MONOCYTES # (AUTO) 0.7 K/uL (0.1-1.0); MONOCYTES % (AUTO) 9.3 % (2.0-9.0); NEUTROPHILS # (AUTO) 4.9 K/uL (1.8-7.7); NEUTROPHILS % (AUTO) 61.2 % (40.0-70.0); PLATELET COUNT (AUTO) 146 K/uL (150-450); RED BLOOD CELL COUNT(AUTO) 4.45 MIL/uL (4.50-5.90); RED CELL DISTRIBUTION WIDTH 14.9 % (11.5-14.5)
[2019-06-06 05:21] LABS: CREATININE 1.3 mg/dL (0.60-1.30)
[2019-06-06 05:24] LABS: POTASSIUM 3.4 mmol/L (3.5-5.1)
[2019-06-06] MEDS ORDERED: HEPARIN SODIUM,PORCINE 5,000 UNITS/ML VIAL IVP PRN ×2 (06:00)
[2019-06-06] MEDS ORDERED: HEPARIN SODIUM,PORCINE 5,000 UNITS/ML VIAL IVP ONE (06:00)
[2019-06-06 06:25] LABS: AMPHET/METH SCREEN,URINE NEGATIVE (NEGATIVE); BARBITURATE SCREEN, URINE NEGATIVE (NEGATIVE); BENZODIAZEPINES SCREEN,URINE NEGATIVE (NEGATIVE); CANNABINOID SCREEN,URINE POSITIVE (NEGATIVE); COCAINE SCREEN,URINE NEGATIVE (NEGATIVE); METHADONE SCREEN, URINE NEGATIVE (NEGATIVE); OPIATE SCREEN,URINE NEGATIVE (NEGATIVE)
[2019-06-06 06:28] LABS: PHENCYCLIDINE SCREEN,URINE NEGATIVE (NEGATIVE)
[2019-06-06] MEDS: HEPARIN SODIUM 25000 UNITS/D5W 250 ML IV PRN ×3 (06:32→13:41)
[2019-06-06 08:00] VITALS: BP 117/79
[2019-06-06] MEDS ORDERED: ARIPiprazole 15 MG TABLET PO SCH (09:00)
[2019-06-06] MEDS: FLUTICASONE/VILANTEROL 100-25 MCG/INH INHALER [14] IH SCH (09:14)
[2019-06-06] MEDS: AMANTADINE HCL 100 MG CAPSULE PO SCH ×3 (09:14→21:07)
[2019-06-06] MEDS: NALTREXONE HCL 50 MG TABLET PO SCH (09:15)
[2019-06-06] MEDS: ATORVASTATIN CALCIUM 10 MG TABLET PO SCH (09:17)
[2019-06-06] MEDS: DULoxetine HCL 20 MG CAPSULE PO SCH (09:17)
[2019-06-06] MEDS: TIOTROPIUM BROMIDE 18 MCG/INH HANDIHALER [5] IH SCH (09:18)
[2019-06-06] MEDS: PANTOPRAZOLE SODIUM 40 MG DR TABLET PO SCH (09:24)
[2019-06-06] MEDS ORDERED: POTASSIUM CHLORIDE 20 MEQ ER TABLET PO ONE (09:30)
[2019-06-06] MEDS ORDERED: POTASSIUM CHLORIDE 10 MEQ ER TABLET PO ONE ×2 (11:00→12:00)
[2019-06-06 11:46] LABS: FREE T4 (FREE THYROXINE) 1.26 ng/dL (0.76-1.46); THYROID STIMULATING HORMONE 0.6 uIU/mL (0.36-3.74)
[2019-06-06 12:00] VITALS: BP 121/82
[2019-06-06] MEDS ORDERED: FluPHENAZine HCL 5 MG TABLET PO PRN (14:45)
[2019-06-06 16:00] VITALS: BP 114/68
[2019-06-06] MEDS ORDERED: AMIODARONE HCL 750 MG in DEXTROSE 5%-WATER 485 ML IV SCH ×2 (18:54→19:00)
[2019-06-06 20:00] VITALS: BP 109/69
[2019-06-06] MEDS: BUDESONIDE 0.5 MG/2 ML NEB SOLUTION NEB SCH (21:00)
[2019-06-06] MEDS: APIXABAN 5 MG TABLET PO SCH (21:07)
[2019-06-06] MEDS: FluPHENAZine HCL 10 MG TABLET PO SCH (21:08)
[2019-06-06] MEDS: AMIODARONE HCL 200 MG TABLET PO SCH (21:08)
[2019-06-06] MEDS: CARVEDILOL 6.25 MG TABLET PO SCH (21:09)
[2019-06-07] VITALS (7 sets, daily range): BP systolic 103–152; BP diastolic 63–88
[2019-06-07 02:37] LABS: APPEARANCE,URINE CLEAR (CLEAR); BILIRUBIN,URINE NEGATIVE (NEGATIVE); GLUCOSE, URINE (UA) NEGATIVE (NEGATIVE); KETONES,URINE NEGATIVE (NEGATIVE); LEUKOCYTE ESTERASE ,URINE NEGATIVE (NEGATIVE); NITRATE,URINE NEGATIVE (NEGATIVE); OCCULT BLOOD,URINE NEGATIVE (NEGATIVE); PROTEIN,URINE POS 1+ (NEGATIVE)
[2019-06-07 02:44] LABS: CREATININE,URINE RANDOM 200.8 mg/dL (30.0-125.0); PROTEIN,URINE RANDOM 36 mg/dL (0-11.9)
[2019-06-07 02:50] LABS: UREA NITROGEN,URINE RANDOM 1173 mg/dL (350-1000)
[2019-06-07 02:54] LABS: SODIUM,URINE RANDOM 129 mmol/l (20-110)
[2019-06-07 05:55] LABS: BASOPHILS % (AUTO) 0.4 % (0.0-2.0); EOSINOPHILS % (AUTO) 1.7 % (1.0-6.0); HEMATOCRIT 41.7 % (41-53); HEMOGLOBIN 13.5 g/dL (13.5-17.5); LYMPHOCYTES # (AUTO) 2.3 K/uL (1.0-4.8); LYMPHOCYTES % (AUTO) 25.4 % (22.0-44.0); MEAN CORPUSCULAR HEMOGLOBIN 30.3 pg (26.0-34.0); MEAN CORPUSCULAR HGB CONC 32.4 G/dL (31.0-37.0); MEAN CORPUSCULAR VOLUME 93 fL (80-100); MONOCYTES # (AUTO) 0.7 K/uL (0.1-1.0); MONOCYTES % (AUTO) 7.5 % (2.0-9.0); PLATELET COUNT (AUTO) 147 K/uL (150-450); RED BLOOD CELL COUNT(AUTO) 4.46 MIL/uL (4.50-5.90); RED CELL DISTRIBUTION WIDTH 14.8 % (11.5-14.5)
[2019-06-07 06:05] LABS: HEMOGLOBIN A1C 5.5 % (4.5-6.2)
[2019-06-07 06:18] LABS: CALCIUM, TOTAL 9.2 mg/dL (8.8-10.5); CREATININE 1.28 mg/dL (0.60-1.30); FREE T4 (FREE THYROXINE) 1.31 ng/dL (0.76-1.46); MAGNESIUM 1.8 mg/dL (1.80-2.40); POTASSIUM 4.5 mmol/L (3.5-5.1); THYROID STIMULATING HORMONE 1.2 uIU/mL (0.36-3.74)
[2019-06-07 06:28] LABS: CHOL/HDL RATIO 2.3 (4.2-7.3)
[2019-06-07] MEDS: BUDESONIDE 0.5 MG/2 ML NEB SOLUTION NEB SCH ×2 (07:51→22:45)
[2019-06-07] MEDS: PANTOPRAZOLE SODIUM 40 MG DR TABLET PO SCH (08:14)
[2019-06-07] MEDS: CARVEDILOL 6.25 MG TABLET PO SCH ×2 (08:14→20:51)
[2019-06-07] MEDS: TIOTROPIUM BROMIDE 18 MCG/INH HANDIHALER [5] IH SCH (08:14)
[2019-06-07] MEDS: APIXABAN 5 MG TABLET PO SCH ×2 (08:14→20:51)
[2019-06-07] MEDS: AMIODARONE HCL 200 MG TABLET PO SCH ×3 (08:14→20:51)
[2019-06-07] MEDS: FLUTICASONE/VILANTEROL 100-25 MCG/INH INHALER [14] IH SCH (08:15)
[2019-06-07] MEDS: ATORVASTATIN CALCIUM 10 MG TABLET PO SCH (08:15)
[2019-06-07] MEDS: NALTREXONE HCL 50 MG TABLET PO SCH (08:15)
[2019-06-07] MEDS: AMANTADINE HCL 100 MG CAPSULE PO SCH ×3 (08:15→20:51)
[2019-06-07] MEDS: DULoxetine HCL 20 MG CAPSULE PO SCH (08:16)
[2019-06-07] MEDS: FluPHENAZine HCL 10 MG TABLET PO SCH (20:51)
[2019-06-08 04:40] VITALS: BP 102/61
[2019-06-08 07:32] LABS: CALCIUM, TOTAL 9.1 mg/dL (8.8-10.5); CREATININE 1.32 mg/dL (0.60-1.30); POTASSIUM 4.3 mmol/L (3.5-5.1)
[2019-06-08] MEDS: BUDESONIDE 0.5 MG/2 ML NEB SOLUTION NEB SCH (08:01)
[2019-06-08] MEDS: FLUTICASONE/VILANTEROL 100-25 MCG/INH INHALER [14] IH SCH (09:19)
[2019-06-08] MEDS: CARVEDILOL 6.25 MG TABLET PO SCH (09:19)
[2019-06-08] MEDS: TIOTROPIUM BROMIDE 18 MCG/INH HANDIHALER [5] IH SCH (09:19)
[2019-06-08] MEDS: ATORVASTATIN CALCIUM 10 MG TABLET PO SCH (09:19)
[2019-06-08] MEDS: AMIODARONE HCL 200 MG TABLET PO SCH (09:20)
[2019-06-08] MEDS: PANTOPRAZOLE SODIUM 40 MG DR TABLET PO SCH (09:21)
[2019-06-08] MEDS: DULoxetine HCL 20 MG CAPSULE PO SCH (09:23)
[2019-06-08] MEDS: APIXABAN 5 MG TABLET PO SCH (09:23)
[2019-06-08] MEDS: AMANTADINE HCL 100 MG CAPSULE PO SCH (09:23)
[2019-06-08 09:24] VITALS: BP 139/95
[2019-06-08] MEDS: NALTREXONE HCL 50 MG TABLET PO SCH (09:24)
[2019-06-08 11:48] VITALS: BP 113/72
[2019-06-08] MEDS ORDERED: CARV6 PO (13:39)
[2019-06-08] MEDS ORDERED: AMAN100C12 PO (13:39)
[2019-06-08] MEDS ORDERED: FLUP10 PO (13:41)
[2019-06-08] MEDS ORDERED: APIX5TAB PO (13:47)
[2019-06-08] MEDS ORDERED: LOSA25TA41 PO (13:47)
[2019-06-08] MEDS ORDERED: AMIO200T44 PO (13:47)
[2019-06-08] MEDS ORDERED: ATOR10TA84 PO (13:48)
[2019-06-08] MEDS ORDERED: DULO20CA30 PO (13:48)
[2019-06-08] MEDS ORDERED: FLUT1AER IH (13:49)
[2019-06-08] MEDS ORDERED: PANT40TA25 PO (13:49)
[2019-06-08] MEDS ORDERED: TIOT4MIS2 IH (13:59)
== END 2019-06-08 15:00 | disposition home or self-care (01) | DRG 682 ==
LOC: EMS 15:46 → ICU 19:00 → 5N 06-07 18:07 → 5S 06-08 05:28
PROVIDERS: ADMIT Internal Medicine Geriatric Medicine; ATTEND Internal Medicine Geriatric Medicine
PROC: 4B02XTZ Measurement of Cardiac Defibrillator, External Approach (ICD-10-PCS; principal; 2019-06-05)
DX: N17.0 Acute kidney failure with tubular necrosis (principal); I50.43 Acute on chronic combined systolic (congestive) and diastolic (congestive) heart failure; I13.0 Hypertensive heart and chronic kidney disease with heart failure and stage 1 through stage 4 chronic kidney disease, or unspecified chronic kidney disease; F20.0 Paranoid schizophrenia; J44.1 Chronic obstructive pulmonary disease with (acute) exacerbation; I47.2 Ventricular tachycardia; I48.0 Paroxysmal atrial fibrillation; E78.5 Hyperlipidemia, unspecified; E87.6 Hypokalemia; N18.1 Chronic kidney disease, stage 1; I25.5 Ischemic cardiomyopathy; D64.9 Anemia, unspecified; D69.6 Thrombocytopenia, unspecified; F17.210 Nicotine dependence, cigarettes, uncomplicated; K21.9 Gastro-esophageal reflux disease without esophagitis; Z95.810 Presence of automatic (implantable) cardiac defibrillator; Z80.2 Family history of malignant neoplasm of other respiratory and intrathoracic organs; Z82.49 Family history of ischemic heart disease and other diseases of the circulatory system; Z79.899 Other long term (current) drug therapy
CPT/HCPCS: 70450; 76770; 82570; 83036; 83735; 84156; 84300; 84436; 84439; 84443; 84540; 87081; 93005; 93306; 94640; 96365; 99291; G0378; J0282; J1644; J7050; J7060

== ENCOUNTER 2019-06-10 16:17 | Inpatient (IN) | payer MEDICARE, MEDICAID ==
[~2019-06-10] VITALS: Ht 170.2 cm; Wt 57.6 kg
[~2019-06-10 16:17] MED LIST changes: +AMIO200T44 PO; +APIX5TAB PO; -ARIP15TA2 PO; -CARV12 PO; +CARV6 PO; +FLUP10 PO; -FURO20 PO; +TIOT4MIS2 IH
[2019-06-10] MEDS ORDERED: MAG HYDROX/AL HYDROX/SIMETH ES 30 ML SUSPENSION UDCUP PO PRN (17:00)
[2019-06-10] MEDS ORDERED: MAGNESIUM HYDROXIDE SUSPENSION 30 ML UDCUP PO PRN (17:00)
[2019-06-10] MEDS ORDERED: ACETAMINOPHEN 325 MG TABLET PO PRN (17:00)
[2019-06-10] MEDS ORDERED: PROMETHAZINE HCL 25 MG TABLET PO PRN (17:00)
[2019-06-10] MEDS ORDERED: FluPHENAZine HCL 5 MG TABLET PO PRN (17:00)
[2019-06-10] MEDS ORDERED: GuaiFENesin/D-METHORPHAN [SUGAR-FREE] 200-20MG/10 ML SYRUP UDCUP PO PRN (17:00)
[2019-06-10] MEDS ORDERED: LORazepam 2 MG TABLET PO PRN (17:00)
[2019-06-10] MEDS ORDERED: LOPERAMIDE HCL 2 MG CAPSULE PO PRN (17:00)
[2019-06-10] MEDS ORDERED: HydrOXYzine PAMOATE 50 MG CAPSULE PO PRN (17:00)
[2019-06-10] MEDS ORDERED: FluPHENAZine DECANOATE 25 MG/ML IM ONE (17:00)
[2019-06-10 17:06] VITALS: BP 129/94
[2019-06-10] MEDS: AMANTADINE HCL 100 MG CAPSULE PO SCH (17:16)
[2019-06-10] MEDS: THIAMINE HCL 100 MG TABLET PO SCH (17:16)
[2019-06-10] MEDS ORDERED: PNEUMOCOCCAL VACCINE POLYVALENT 0.5 ML VIAL [PPSV23] IM ONE (18:00)
[2019-06-10] MEDS ORDERED: FluPHENAZine HCL 10 MG TABLET PO SCH (21:00)
[2019-06-10] MEDS ORDERED: ALBUTEROL SULFATE HFA 90 MCG/PUFF 8 GM INHALER IH PRN (22:45)
[2019-06-11 06:17] VITALS: BP 111/60
[2019-06-11 08:09] VITALS: BP 117/79
[2019-06-11 08:29] LABS: BASOPHILS % (AUTO) 0.3 % (0.0-2.0); EOSINOPHILS % (AUTO) 1.2 % (1.0-6.0); HEMATOCRIT 42.3 % (41-53); HEMOGLOBIN 14.2 g/dL (13.5-17.5); LYMPHOCYTES # (AUTO) 1.7 K/uL (1.0-4.8); LYMPHOCYTES % (AUTO) 17.9 % (22.0-44.0); MEAN CORPUSCULAR HEMOGLOBIN 31.2 pg (26.0-34.0); MEAN CORPUSCULAR HGB CONC 33.6 G/dL (31.0-37.0); MEAN CORPUSCULAR VOLUME 93 fL (80-100); MONOCYTES # (AUTO) 0.7 K/uL (0.1-1.0); MONOCYTES % (AUTO) 6.9 % (2.0-9.0); NEUTROPHILS % (AUTO) 73.7 % (40.0-70.0); PLATELET COUNT (AUTO) 153 K/uL (150-450); RED BLOOD CELL COUNT(AUTO) 4.57 MIL/uL (4.50-5.90); RED CELL DISTRIBUTION WIDTH 15.4 % (11.5-14.5)
[2019-06-11 08:50] LABS: ALBUMIN 3.3 g/dL (3.4-5.0); BILIRUBIN,TOTAL 0.6 mg/dL (0.1-1.0); CALCIUM, TOTAL 9.1 mg/dL (8.8-10.5); CREATININE 1.53 mg/dL (0.60-1.30); POTASSIUM 3.5 mmol/L (3.5-5.1); TOTAL PROTEIN, SERUM 6.3 g/dL (6.4-8.2)
[2019-06-11] MEDS ORDERED: CARVEDILOL 12.5 MG TABLET PO SCH (09:00)
[2019-06-11] MEDS ORDERED: LOSARTAN POTASSIUM 25 MG TABLET PO SCH (09:00)
[2019-06-11] MEDS ORDERED: FUROSEMIDE 20 MG TABLET PO SCH (09:00)
[2019-06-11] MEDS: ATORVASTATIN CALCIUM 10 MG TABLET PO SCH (09:35)
[2019-06-11] MEDS: FUROSEMIDE 20 MG TABLET PO SCH (09:35)
[2019-06-11] MEDS: PANTOPRAZOLE SODIUM 40 MG DR TABLET PO SCH (09:35)
[2019-06-11] MEDS: FOLIC ACID 1 MG TABLET PO SCH (09:35)
[2019-06-11] MEDS: THIAMINE HCL 100 MG TABLET PO SCH ×2 (09:35→16:51)
[2019-06-11] MEDS: MULTIVITAMINS WITH MINERALS, THERAPEUTIC TABLET PO SCH (09:35)
[2019-06-11] MEDS: NALTREXONE HCL 50 MG TABLET PO SCH (09:35)
[2019-06-11] MEDS: AMIODARONE HCL 200 MG TABLET PO SCH ×2 (09:36→16:51)
[2019-06-11] MEDS: AMANTADINE HCL 100 MG CAPSULE PO SCH ×3 (09:36→16:51)
[2019-06-11] MEDS: CARVEDILOL 6.25 MG TABLET PO SCH ×2 (09:36→16:51)
[2019-06-11] MEDS: DULoxetine HCL 20 MG CAPSULE PO SCH (09:36)
[2019-06-11] MEDS: APIXABAN 5 MG TABLET PO SCH ×2 (09:37→16:51)
[2019-06-11] MEDS: LOSARTAN POTASSIUM 25 MG TABLET PO SCH (09:37)
[2019-06-11] MEDS: FLUTICASONE/VILANTEROL 100-25 MCG/INH INHALER [14] IH SCH (09:38)
[2019-06-11] MEDS: TIOTROPIUM BROMIDE 18 MCG/INH HANDIHALER [5] IH SCH (09:38)
[2019-06-11 16:08] VITALS: BP 126/74
[2019-06-12 07:13] VITALS: BP 105/60
[2019-06-12 08:20] VITALS: BP 120/69
[2019-06-12 08:44] LABS: CHOL/HDL RATIO 2.1 (4.2-7.3)
[2019-06-12] MEDS: FUROSEMIDE 20 MG TABLET PO SCH (09:46)
[2019-06-12] MEDS: FOLIC ACID 1 MG TABLET PO SCH (09:46)
[2019-06-12] MEDS: ATORVASTATIN CALCIUM 10 MG TABLET PO SCH (09:46)
[2019-06-12] MEDS: NALTREXONE HCL 50 MG TABLET PO SCH (09:46)
[2019-06-12] MEDS: DULoxetine HCL 20 MG CAPSULE PO SCH (09:46)
[2019-06-12] MEDS: FLUTICASONE/VILANTEROL 100-25 MCG/INH INHALER [14] IH SCH (09:47)
[2019-06-12] MEDS: LOSARTAN POTASSIUM 25 MG TABLET PO SCH (09:47)
[2019-06-12] MEDS: CARVEDILOL 6.25 MG TABLET PO SCH ×2 (09:47→16:22)
[2019-06-12] MEDS: APIXABAN 5 MG TABLET PO SCH ×2 (09:47→16:22)
[2019-06-12] MEDS: TIOTROPIUM BROMIDE 18 MCG/INH HANDIHALER [5] IH SCH (09:48)
[2019-06-12] MEDS: THIAMINE HCL 100 MG TABLET PO SCH ×2 (09:49→16:22)
[2019-06-12] MEDS: AMANTADINE HCL 100 MG CAPSULE PO SCH ×3 (09:50→16:22)
[2019-06-12] MEDS: AMIODARONE HCL 200 MG TABLET PO SCH ×2 (09:50→16:22)
[2019-06-12] MEDS: MULTIVITAMINS WITH MINERALS, THERAPEUTIC TABLET PO SCH (10:11)
[2019-06-12] MEDS: PANTOPRAZOLE SODIUM 40 MG DR TABLET PO SCH (10:46)
[2019-06-12 16:10] VITALS: BP 110/68
[2019-06-12] MEDS ORDERED: FluPHENAZine HCL 10 MG TABLET PO SCH (21:00)
[2019-06-13 06:50] VITALS: BP 120/68
[2019-06-13 08:06] VITALS: BP 120/84
[2019-06-13] MEDS: FUROSEMIDE 20 MG TABLET PO SCH (08:36)
[2019-06-13] MEDS: AMANTADINE HCL 100 MG CAPSULE PO SCH ×3 (08:39→16:07)
[2019-06-13] MEDS: PANTOPRAZOLE SODIUM 40 MG DR TABLET PO SCH (08:39)
[2019-06-13] MEDS: LOSARTAN POTASSIUM 25 MG TABLET PO SCH (08:40)
[2019-06-13] MEDS: FOLIC ACID 1 MG TABLET PO SCH (08:40)
[2019-06-13] MEDS: ATORVASTATIN CALCIUM 10 MG TABLET PO SCH (08:40)
[2019-06-13] MEDS: APIXABAN 5 MG TABLET PO SCH ×2 (08:40→16:07)
[2019-06-13] MEDS: MULTIVITAMINS WITH MINERALS, THERAPEUTIC TABLET PO SCH (08:40)
[2019-06-13] MEDS: CARVEDILOL 6.25 MG TABLET PO SCH ×2 (08:40→16:07)
[2019-06-13] MEDS: THIAMINE HCL 100 MG TABLET PO SCH ×2 (08:40→16:08)
[2019-06-13] MEDS: AMIODARONE HCL 200 MG TABLET PO SCH ×2 (08:40→16:08)
[2019-06-13] MEDS: DULoxetine HCL 30 MG CAPSULE PO SCH (08:47)
[2019-06-13] MEDS: NALTREXONE HCL 50 MG TABLET PO SCH (09:28)
[2019-06-13] MEDS: TIOTROPIUM BROMIDE 18 MCG/INH HANDIHALER [5] IH SCH (09:28)
[2019-06-13] MEDS: FLUTICASONE/VILANTEROL 100-25 MCG/INH INHALER [14] IH SCH (09:28)
[2019-06-13 16:03] VITALS: BP 140/80
[2019-06-13] MEDS: FluPHENAZine HCL 10 MG TABLET PO SCH (20:25)
[2019-06-14 01:15] VITALS: BP 133/93
[2019-06-14] MEDS: THIAMINE HCL 100 MG TABLET PO SCH ×2 (08:13→16:28)
[2019-06-14] MEDS: FOLIC ACID 1 MG TABLET PO SCH (08:13)
[2019-06-14] MEDS: DULoxetine HCL 30 MG CAPSULE PO SCH (08:13)
[2019-06-14] MEDS: LOSARTAN POTASSIUM 25 MG TABLET PO SCH (08:13)
[2019-06-14] MEDS: NALTREXONE HCL 50 MG TABLET PO SCH (08:13)
[2019-06-14] MEDS: CARVEDILOL 6.25 MG TABLET PO SCH ×2 (08:14→16:28)
[2019-06-14] MEDS: AMANTADINE HCL 100 MG CAPSULE PO SCH ×3 (08:14→16:28)
[2019-06-14] MEDS: FUROSEMIDE 20 MG TABLET PO SCH (08:14)
[2019-06-14] MEDS: PANTOPRAZOLE SODIUM 40 MG DR TABLET PO SCH (08:14)
[2019-06-14] MEDS: AMIODARONE HCL 200 MG TABLET PO SCH ×2 (08:14→16:28)
[2019-06-14] MEDS: ATORVASTATIN CALCIUM 10 MG TABLET PO SCH (08:14)
[2019-06-14] MEDS: MULTIVITAMINS WITH MINERALS, THERAPEUTIC TABLET PO SCH (08:14)
[2019-06-14] MEDS: APIXABAN 5 MG TABLET PO SCH ×2 (08:15→16:28)
[2019-06-14] MEDS: FLUTICASONE/VILANTEROL 100-25 MCG/INH INHALER [14] IH SCH (08:42)
[2019-06-14] MEDS: TIOTROPIUM BROMIDE 18 MCG/INH HANDIHALER [5] IH SCH (08:43)
[2019-06-14 08:49] VITALS: BP 125/87
[2019-06-14 16:04] VITALS: BP 122/71
[2019-06-14] MEDS: FluPHENAZine HCL 10 MG TABLET PO SCH (20:37)
[2019-06-15 06:10] VITALS: BP 120/80
[2019-06-15] MEDS: MULTIVITAMINS WITH MINERALS, THERAPEUTIC TABLET PO SCH (08:09)
[2019-06-15] MEDS: AMANTADINE HCL 100 MG CAPSULE PO SCH ×3 (08:09→16:32)
[2019-06-15] MEDS: DULoxetine HCL 30 MG CAPSULE PO SCH (08:09)
[2019-06-15] MEDS: PANTOPRAZOLE SODIUM 40 MG DR TABLET PO SCH (08:09)
[2019-06-15] MEDS: NALTREXONE HCL 50 MG TABLET PO SCH (08:09)
[2019-06-15] MEDS: THIAMINE HCL 100 MG TABLET PO SCH ×2 (08:09→16:32)
[2019-06-15] MEDS: APIXABAN 5 MG TABLET PO SCH ×2 (08:09→16:32)
[2019-06-15] MEDS: FUROSEMIDE 20 MG TABLET PO SCH (08:09)
[2019-06-15] MEDS: FOLIC ACID 1 MG TABLET PO SCH (08:09)
[2019-06-15] MEDS: ATORVASTATIN CALCIUM 10 MG TABLET PO SCH (08:09)
[2019-06-15] MEDS: FLUTICASONE/VILANTEROL 100-25 MCG/INH INHALER [14] IH SCH (08:10)
[2019-06-15] MEDS: AMIODARONE HCL 200 MG TABLET PO SCH ×2 (08:10→16:32)
[2019-06-15] MEDS: CARVEDILOL 6.25 MG TABLET PO SCH ×2 (08:10→16:32)
[2019-06-15] MEDS: LOSARTAN POTASSIUM 25 MG TABLET PO SCH (08:10)
[2019-06-15] MEDS: TIOTROPIUM BROMIDE 18 MCG/INH HANDIHALER [5] IH SCH (08:11)
[2019-06-15 08:13] VITALS: BP 119/87
[2019-06-15 16:04] VITALS: BP 119/77
[2019-06-15] MEDS: FluPHENAZine HCL 10 MG TABLET PO SCH (20:29)
[2019-06-15] MEDS: ZOLPIDEM TARTRATE 10 MG TABLET PO PRN (21:39)
[2019-06-16 05:00] VITALS: BP 119/73
[2019-06-16 08:00] VITALS: BP 123/85
[2019-06-16] MEDS: CARVEDILOL 6.25 MG TABLET PO SCH ×2 (08:51→16:29)
[2019-06-16] MEDS: THIAMINE HCL 100 MG TABLET PO SCH ×2 (08:51→16:29)
[2019-06-16] MEDS: ATORVASTATIN CALCIUM 10 MG TABLET PO SCH (08:51)
[2019-06-16] MEDS: LOSARTAN POTASSIUM 25 MG TABLET PO SCH (08:52)
[2019-06-16] MEDS: AMIODARONE HCL 200 MG TABLET PO SCH ×2 (08:52→16:29)
[2019-06-16] MEDS: AMANTADINE HCL 100 MG CAPSULE PO SCH ×3 (08:52→16:29)
[2019-06-16] MEDS: APIXABAN 5 MG TABLET PO SCH ×2 (08:52→16:29)
[2019-06-16] MEDS: TIOTROPIUM BROMIDE 18 MCG/INH HANDIHALER [5] IH SCH (08:53)
[2019-06-16] MEDS: FLUTICASONE/VILANTEROL 100-25 MCG/INH INHALER [14] IH SCH (09:47)
[2019-06-16] MEDS: PANTOPRAZOLE SODIUM 40 MG DR TABLET PO SCH (10:01)
[2019-06-16] MEDS: NALTREXONE HCL 50 MG TABLET PO SCH (10:02)
[2019-06-16] MEDS: FUROSEMIDE 20 MG TABLET PO SCH (10:02)
[2019-06-16] MEDS: FOLIC ACID 1 MG TABLET PO SCH (10:02)
[2019-06-16] MEDS: MULTIVITAMINS WITH MINERALS, THERAPEUTIC TABLET PO SCH (10:02)
[2019-06-16] MEDS: DULoxetine HCL 30 MG CAPSULE PO SCH (10:02)
[2019-06-16 16:08] VITALS: BP 120/62
[2019-06-16] MEDS: FluPHENAZine HCL 10 MG TABLET PO SCH (20:29)
[2019-06-16] MEDS: ZOLPIDEM TARTRATE 10 MG TABLET PO PRN (21:16)
[2019-06-17 05:50] VITALS: BP 120/68
[2019-06-17 08:06] VITALS: BP 123/83
[2019-06-17] MEDS: FLUTICASONE/VILANTEROL 100-25 MCG/INH INHALER [14] IH SCH (08:24)
[2019-06-17] MEDS: TIOTROPIUM BROMIDE 18 MCG/INH HANDIHALER [5] IH SCH (08:24)
[2019-06-17] MEDS: PANTOPRAZOLE SODIUM 40 MG DR TABLET PO SCH (08:30)
[2019-06-17] MEDS: CARVEDILOL 6.25 MG TABLET PO SCH ×2 (08:30→17:24)
[2019-06-17] MEDS: FOLIC ACID 1 MG TABLET PO SCH (08:30)
[2019-06-17] MEDS: NALTREXONE HCL 50 MG TABLET PO SCH (08:30)
[2019-06-17] MEDS: MULTIVITAMINS WITH MINERALS, THERAPEUTIC TABLET PO SCH (08:30)
[2019-06-17] MEDS: THIAMINE HCL 100 MG TABLET PO SCH ×2 (08:31→16:37)
[2019-06-17] MEDS: FUROSEMIDE 20 MG TABLET PO SCH (08:31)
[2019-06-17] MEDS: LOSARTAN POTASSIUM 25 MG TABLET PO SCH (08:32)
[2019-06-17] MEDS: ATORVASTATIN CALCIUM 10 MG TABLET PO SCH (08:33)
[2019-06-17] MEDS: AMANTADINE HCL 100 MG CAPSULE PO SCH ×3 (08:33→16:37)
[2019-06-17] MEDS: AMIODARONE HCL 200 MG TABLET PO SCH (08:33)
[2019-06-17] MEDS: APIXABAN 5 MG TABLET PO SCH ×2 (08:33→17:24)
[2019-06-17] MEDS: DULoxetine HCL 30 MG CAPSULE PO SCH (08:33)
[2019-06-17 16:18] VITALS: BP 107/66
[2019-06-17 17:25] VITALS: BP 126/82
[2019-06-17] MEDS ORDERED: FluPHENAZine HCL 10 MG TABLET PO SCH (21:00)
[2019-06-17] MEDS: ZOLPIDEM TARTRATE 10 MG TABLET PO PRN (21:11)
[2019-06-18 03:09] VITALS: BP 104/65
[2019-06-18 08:08] VITALS: BP 108/66
[2019-06-18] MEDS ORDERED: AMIODARONE HCL 200 MG TABLET PO SCH (09:00)
[2019-06-18] MEDS: CARVEDILOL 6.25 MG TABLET PO SCH (10:40)
[2019-06-18] MEDS: AMANTADINE HCL 100 MG CAPSULE PO SCH ×2 (10:40→12:11)
[2019-06-18] MEDS: PANTOPRAZOLE SODIUM 40 MG DR TABLET PO SCH (10:40)
[2019-06-18] MEDS: DULoxetine HCL 30 MG CAPSULE PO SCH (10:41)
[2019-06-18] MEDS: MULTIVITAMINS WITH MINERALS, THERAPEUTIC TABLET PO SCH (10:41)
[2019-06-18] MEDS: FOLIC ACID 1 MG TABLET PO SCH (10:41)
[2019-06-18] MEDS: ATORVASTATIN CALCIUM 10 MG TABLET PO SCH (10:41)
[2019-06-18] MEDS: FLUTICASONE/VILANTEROL 100-25 MCG/INH INHALER [14] IH SCH (10:41)
[2019-06-18] MEDS: THIAMINE HCL 100 MG TABLET PO SCH (10:41)
[2019-06-18] MEDS: APIXABAN 5 MG TABLET PO SCH (10:41)
[2019-06-18] MEDS: LOSARTAN POTASSIUM 25 MG TABLET PO SCH (10:41)
[2019-06-18] MEDS: NALTREXONE HCL 50 MG TABLET PO SCH (10:41)
[2019-06-18] MEDS: FUROSEMIDE 20 MG TABLET PO SCH (10:41)
[2019-06-18] MEDS: TIOTROPIUM BROMIDE 18 MCG/INH HANDIHALER [5] IH SCH (10:42)
[2019-06-18] MEDS ORDERED: AMAN-6 PO ×2 (13:19→13:47)
[2019-06-18] MEDS ORDERED: FLUP10 PO ×2 (13:19→13:47)
[2019-06-18] MEDS ORDERED: DULO30CA2 PO ×2 (13:19→13:47)
[2019-06-18] MEDS ORDERED: NALT50TA PO (13:19)
[2019-06-18] MEDS ORDERED: THIA100T67 PO (13:47)
[2019-06-18] MEDS ORDERED: FURO20 PO (13:47)
[2019-06-18] MEDS ORDERED: FOLI1 PO (13:47)
[2019-06-18] MEDS ORDERED: ATOR10TA84 PO (13:47)
[2019-06-24] MEDS ORDERED: FluPHENAZine DECANOATE 25 MG/ML IM SCH (09:00)
== END 2019-06-18 16:17 | disposition home or self-care (01) | DRG 885 ==
LOC: B2X 17:02
PROVIDERS: ADMIT Psychiatry & Neurology Psychiatry; ATTEND Psychiatry & Neurology Psychiatry
DX: F20.0 Paranoid schizophrenia (principal); N17.9 Acute kidney failure, unspecified; N18.9 Chronic kidney disease, unspecified; I13.0 Hypertensive heart and chronic kidney disease with heart failure and stage 1 through stage 4 chronic kidney disease, or unspecified chronic kidney disease; E78.5 Hyperlipidemia, unspecified; I48.91 Unspecified atrial fibrillation; I50.9 Heart failure, unspecified; J44.9 Chronic obstructive pulmonary disease, unspecified; K21.9 Gastro-esophageal reflux disease without esophagitis; Z80.2 Family history of malignant neoplasm of other respiratory and intrathoracic organs; Z82.49 Family history of ischemic heart disease and other diseases of the circulatory system; Z87.891 Personal history of nicotine dependence; Z91.14 Patient's other noncompliance with medication regimen; Z91.19 Patient's noncompliance with other medical treatment and regimen; Z95.810 Presence of automatic (implantable) cardiac defibrillator
CPT/HCPCS: 87081; G0481; J2680